=== PATIENT | female | born 1950 ===

== ENCOUNTER 2016-10-31 21:25 | Inpatient (IN) | payer OTHER, MEDICARE ==
--- NOTE | 2016-10-31 21:31 | C.PDOC ---
History Of Present Illness Patient brought to the ER via EMS after she having multiple episodes of vomiting , severe headache, and altered mental status. Patient had lunch today and complained of a headache; later at [address] to [facility] she began to have a severe headache, nausea, and change in mental status. Patient pulled the car over and vomited a large amount; she rested in the back of the car for a while, her family then proceeded to call 911 and bring her here. Time Seen by Provider: 10/31/16 21:30 Chief Complaint (Nursing): Headache History Per: EMS, Family History/Exam Limitations: no limitations Onset/Duration Of Symptoms: Hrs Current Symptoms Are (Timing): Still Present Severity: Moderate Pain Scale Rating Of: 5 Quality: Dull Preceeding Symptoms: Known Migraine Symptoms Associated Symptoms: Nausea, Vomiting, Extremity Weakness. denies: Blurred Vision Recent travel outside of the [place]: No Additional History Per: Family Past Medical History Reviewed: Historical Data, Nursing Documentation, Vital Signs Vital Signs: Last Vital Signs Temp 98.2 F 11/01/16 04:00 Pulse 75 11/01/16 05:00 Resp 10 L 11/01/16 05:00 BP 121/92 H 11/01/16 04:18 Pulse Ox 100 11/01/16 05:00 - Medical History PMH: No Chronic Diseases Surgical History: No Surg Hx Family History: States: No Known Family Hx Review Of Systems Constitutional: Negative for: Fever, Chills Eyes: Negative for: Vision Change Cardiovascular: Negative for: Chest Pain, Palpitations Respiratory: Negative for: Shortness of Breath, Wheezing Gastrointestinal: Positive for: Nausea, Vomiting. Negative for: Abdominal Pain Genitourinary: Negative for: Dysuria Musculoskeletal: Negative for: Neck Pain, Shoulder Pain, Arm Pain Skin: Negative for: Rash, Lesions Neurological: Positive for: Weakness, Altered Mental Status, Headache. Negative for: Dizziness Psych: Negative for: Anxiety Physical Exam - Physical Exam Appears: In Acute Distress, Other (AAAX#) Skin: Warm, Dry Head: Normacephalic Eye(s): bilateral: Normal Inspection, PERRL, EOMI, Other (sluggish response) Oral Mucosa: Moist Throat: No Erythema Neck: Trachea Midline, Supple Chest: Symmetrical, No Tenderness Cardiovascular: Rhythm Regular, No Murmur Respiratory: No Rales, No Rhonchi, No Wheezing Gastrointestinal/Abdominal: Soft, No Tenderness, No Distention Back: No CVA Tenderness Extremity: No Tenderness, No Pedal Edema, Other (left arm weakness) Extremity: Bilateral: Atraumatic, Normal Color And Temperature, Normal ROM Pulses: Left Dorsalis Pedis: Normal, Right Dorsalis Pedis: Normal Neurological/Psych: Oriented x3, Other (Mild right facial droop, and left arm weakness) Gait: Unable To Assess Extremity: Left: Falls Before 10 Secs ED Course And Treatment - Laboratory Results Result Diagrams: 10/31/16 21:56 10/31/16 21:56 ECG: Interpreted By Me, Viewed By Me ECG Rhythm: Sinus Rhythm (76), Nonspecific Changes O2 Sat by Pulse Oximetry: 98 Pulse Ox Interpretation: Normal - Radiology CXR: Interpreted by Me, Viewed By Me CXR Interpretation: No: Infiltrates, Fracture, Pnemothorax Progress Note: Code Stoke activated. Blood work, EKG, CXR ordered. 9:45 pm placed call to neurosurgery. 9:[address] bishop, neurosurgery, no surgery, repeat ct in am. 9:[address] lissy robles with [facility] and decprash[facility]. spoke with the family(hipaa compliant) about the diagnosis Critical Care Time - Critical Care Note Total Time (in mins): 30 Documented critical care: time excludes all time spent performing seperately billable procedures. NIHSS Stroke Scale - Date/Time Evaluation Performed Date Performed: 10/31/16 Time Performed: 21:28 When Was NIHSS Performed: Baseline - How Severe is the Stoke Level of Consciousness: 0=Alert LOC to Questions: 0=Both comments correct LOC to commands: 0=Obeys both correctly Best Gaze: 0=Normal Visual: 0=No visual loss Facial: 1=Minor asymmetry Motor Arm - Left: 2=Falls before 10 sec Motor Arm - Right: 0=No drift Motor Leg - Left: 0=No drift Motor Leg - Right: 0=No drift Limb Ataxia: 0=Absent Sensory: 0=Normal Best Language: 0=No aphasia Dysarthia: 1=Mild to moderate slurring Extinction & Inattention (Neglect): 0=Normal, no object Score: 4 Severity Of Stroke: 1-4= Minor Stroke rTPA Inclusion/Exclusion - Refusal of Treatment Patient Refused Treatment: No - Inclusion Criteria for Altepase Patient is 18 years or Older: Yes The Clinical Diagnosis of Ischemic Stroke That is Causing a Potentially Disabling Neurological Deficit: Yes Time of Onset is Well Established to be Less Than 270 Minute Before Treatment Would Begin: No Risk/Benefit Discussed With Patient/Family Member Present: Yes - Exclusion Criteria for Altepase Uncontrolled Hypertension at Time of Treatment (Systolic BP above 185 or Diastolic BP above 110 mmHg): No Active Internal Bleeding: No Known Bleeding Diathesis Including but Not Limited to: Platelets Below 100,000/ mm,PTT Above 40 sec After Heparin Use, Current Use of Oral Anitcoagulant With INR Greater Than 1.7 or PT Greater Than 15 secs: No Evidence of an Intracranial Hemorrhage: Yes Evidence of Major Acute Infarct With Signs Greater Than 1/3 MCA Territory: No Suspicion of Subarachnoid Hemorrhage on Pretreatment Evaluation Even if CT Head Negative For Hemorrhage: No Disposition Discussed With DrPaige: Clementina Nelson Comment: accepted the pt on his service and took over the care at 10:30PM Doctor Will See Patient In The: Hospital Counseled Patient/Family Regarding: Studies Performed, Diagnosis - Disposition Disposition: HOSPITALIZED Disposition Time: 21:31 Condition: CRITICAL - POA Present On Arrival: Poor Glycemic Control - Clinical Impression Clinical Impression: Headache, Intraparenchymal hemorrhage of brain - Scribe Statement The provider has reviewed the documentation as recorded by the Scribgee Alberts All medical record entries made by the Mikeibgee were at my direction and personally dictated by me. I have reviewed the chart and agree that the record accurately reflects my personal performance of the history, physical exam, medical decision making, and the department course for this patient. I have also personally directed, reviewed, and agree with the discharge instructions and disposition. Decision To Admit - Pt Status Changed To: Hospital Disposition Of: Inpatient - Admit Certification Admit to Inpatient:: After my assessment, the patient will require hospitalization for at least two midnights. This is because of the severity of symptoms shown, intensity of services needed, and/or the medical risk in this patient being treated as an outpatient. - InPatient: Physician Admission Certification: I certify that this patient requires 2 or more midnights of care for the following reason:: After my assessment, the patient will require hospitalization for at least two midnights. This is because of the severity of symptoms shown, intensity of services needed, and/or the medical risk in this patient being treated as an outpatient. - . Bed Request Type: ICU Admitting Physician: Clementina Nelson Patient Diagnosis: Headache, Intraparenchymal hemorrhage of brain
--- NOTE | 2016-10-31 21:54 | CT ---
EXAM: CT Head Without Intravenous Contrast CLINICAL HISTORY: 66 years old, female; Signs and symptoms; Altered mental status/memory loss; Confusion or disorientation; Additional info: Code stroke TECHNIQUE: Axial computed tomography images of the head/brain without intravenous contrast. This CT exam was performed using one or more of the following dose reduction techniques: automated exposure control, adjustment of the mA and/or kV according to patient size, and/or use of iterative reconstruction technique. COMPARISON: No relevant prior studies available. FINDINGS: Brain: 4.2 x 4.5 cm intraparenchymal hemorrhage within RIGHT temporal parietal region. Mild surrounding edema. Minimal RIGHT effacement of basilar cisterns. Grossly preserved day-white matter differentiation. Midline shift: 0.3 cm RIGHT to LEFT shift. Ventricles: No hydrocephalus. Bones/joints: No acute fracture. Soft tissues: Unremarkable. Vasculature: Mild atherosclerotic disease of intracranial arteries. Sinuses: No acute sinusitis. Mastoid air cells: Partial opacification of mastoids. Orbits: Unremarkable as visualized. IMPRESSION: 1. Intracranial hemorrhage as above. 2. Incidental/non-acute findings are described above.
[2016-10-31 22:01] LABS: BASO % 0.4 % (0.0-2.0); EOS % 0.4 % (0.0-4.0); HEMOGLOBIN 11.9 g/dL (11.0-16.0); LYMPH # 1.8 K/uL (1.0-4.3); LYMPH % 16.8 % (20.0-40.0); MEAN CELL VOLUME 89.5 fL (81.0-99.0); MEAN CORPUSCULAR HEMOGLOBIN 29.4 pg (27.0-31.0); MEAN CORPUSCULAR HGB CONC 32.8 g/dL (33.0-37.0); MEAN PLATELET VOLUME 8.8 fL (7.2-11.7); MONO # 0.7 K/uL (0.0-0.8); MONO % 6.6 % (0.0-10.0); NEUT # 7.9 K/uL (1.8-7.0); NEUT % 75.8 % (50.0-75.0); NRBC % 0.1 % (0.0-2.0); RBC 4.05 Mil/uL (3.80-5.20); RED CELL DISTRIBUTION WIDTH 13.2 % (11.5-14.5); WHITE BLOOD COUNT 10.5 K/uL (4.8-10.8)
[2016-10-31 22:09] LABS: PROTHROMBIN TIME 11.3 SECONDS (9.7-12.2)
[2016-10-31 22:10] LABS: ALBUMIN 4.2 g/dL (3.5-5.0)
[2016-10-31 22:13] LABS: ALB/GLOB RATIO 1.4 (1.0-2.1); AST/SGOT 23 U/L (14-36); BLOOD UREA NITROGEN 16 mg/dL (7-17); GFR AFRICAN-AMERICAN > 60; GFR NON-AFRICAN AMERICAN > 60
[2016-10-31] MEDS ORDERED: Dexamethasone 4 mg/1 ml IVP STA (22:13)
[2016-10-31 22:14] LABS: ALT/SGPT 22 U/L (9-52); CALCIUM 8.6 mg/dl (8.6-10.4); HDL CHOLESTEROL 61 mg/dL (30-70)
[2016-10-31] MEDS ORDERED: Dexamethasone 4 mg/1 ml ONE (22:23)
[2016-10-31 22:25] LABS: LDL CHOLESTEROL 101 mg/dL (0-129)
--- NOTE | 2016-10-31 23:56 | CP.PCM.CON ---
History of Present Illness - History of Present Illness History of Present Illness: 66 F with h/o HTN not on meds, was driving today around 6 pm with sister who noticed patient was disoriented and asked her to slab puller, patient then vomited and became lethargic. In ER she was brought and found right side intra cerebral bleed. Patient in ER had been lethargic as per the ER information left hang medical interpreter had been wk. Neuro surg was consulted advised no surgical intervention , neurology recommended prophylactic keppra and decadron. Patient at time of eval continued to c/o right side headache, was sleepy but arousable and would be able to answer questions and follow commands. Patient was not sob, denied, cp. PMH as above PSH none Allergies NKDA Family History not contributory Social denied alcohol, illicit drugs, tobacco, works as teacher Meds none Review of Systems - Review of Systems All systems: reviewed and no additional remarkable complaints except (HPI) Past Patient History - Past Social History Smoking Status: Unknown If Ever Smoked Alcohol: None Drugs: Denies Home Situation {Lives}: With Family Domestic Violence: Negative - CARDIAC Hx Hypertension: Yes - NEUROLOGICAL Hx Migraine: Yes - PSYCHIATRIC Hx Substance Use: No Meds Allergies/Adverse Reactions: Allergies Allergy/AdvReac Type Severity Reaction Status Date / Time No Known Allergies Allergy Verified 10/31/16 21:33 - Medications Medications: Current Medications Dexamethasone (Decadron Inj) 4 mg IV Q8 [facility] Stop: 11/01/16 22:01 Famotidine (Pepcid) 20 mg IVP Q12 PB Levetiracetam 500 mg/ Dextrose 105 mls @ 420 mls/hr IVPB Q12H [facility] Last Admin: 10/31/16 22:34 Dose: 420 mls/hr Levetiracetam (Keppra) 500 mg PO BID [facility] Physical Exam - Additional Findings Additional findings: * HEENT PHYLLIS * Neck Supple * Chest Clear * CVS regular, no gallop or rub * PA soft, nt, bs present * Ext no edema * [employer] left arm 2/5, left leg 2/5, sensations intact, coordination intact except weak area, facial weakness on the left lower face with movements. Pupils reactive, equal, tongue midline, speech and language intact. * Skin dry, normal turgor. Results - Vital Signs Recent Vital Signs: Last Vital Signs Temp Pulse 69 10/31/16 23:21 Resp 11 L 10/31/16 23:21 BP 149/65 10/31/16 23:21 Pulse Ox 100 10/31/16 23:21 - Labs Result Diagrams: 10/31/16 21:56 10/31/16 21:56 Assessment & Plan - Assessment and Plan (Free Text) Assessment: * Acute right side intracerbral bleed with resultant left arm/leg weakness * Borderline elevated BP Plan: * Monitor in ICU * Neurochecks * F/u head ct * Emperic keppra * Dexadron * GI/DVT prophylaxis * Neurology and neurosurg consult. * See orders for detail.
[2016-11-01] MEDS: Dexamethasone 4 mg/1 ml IV SCH ×3 (06:16→21:38)
[2016-11-01 06:28] LABS: BASO % 0.1 % (0.0-2.0); HEMOGLOBIN 11.7 g/dL (11.0-16.0); LYMPH # 0.7 K/uL (1.0-4.3); LYMPH % 8.9 % (20.0-40.0); MEAN CORPUSCULAR HEMOGLOBIN 29.3 pg (27.0-31.0); MEAN CORPUSCULAR HGB CONC 32.9 g/dL (33.0-37.0); MEAN PLATELET VOLUME 8.8 fL (7.2-11.7); MONO # 0.1 K/uL (0.0-0.8); MONO % 0.8 % (0.0-10.0); NEUT # 6.7 K/uL (1.8-7.0); NEUT % 90.2 % (50.0-75.0); PLATELET COUNT 258 K/uL (130-400); RED CELL DISTRIBUTION WIDTH 12.7 % (11.5-14.5); WHITE BLOOD COUNT 7.4 K/uL (4.8-10.8)
[2016-11-01 06:31] LABS: PROTHROMBIN TIME 11.3 SECONDS (9.7-12.2)
[2016-11-01 06:33] LABS: ALBUMIN 3.8 g/dL (3.5-5.0)
[2016-11-01 06:36] LABS: ALB/GLOB RATIO 1.2 (1.0-2.1); AST/SGOT 24 U/L (14-36); BLOOD UREA NITROGEN 15 mg/dL (7-17); GFR AFRICAN-AMERICAN > 60; GFR NON-AFRICAN AMERICAN > 60
[2016-11-01 06:37] LABS: ALT/SGPT 21 U/L (9-52); MAGNESIUM 1.9 mg/dL (1.6-2.3)
[2016-11-01 07:04] LABS: SQUAMOUS EPITHIAL < 1 /hpf (0-5); URINE AMORPHOUS SEDIMENT RARE /ul (<OCC); URINE BACTERIA RARE (<OCC); URINE BILIRUBIN NEGATIVE (NEGATIVE); URINE BLOOD NEGATIVE (NEGATIVE); URINE CLARITY Clear (Clear); URINE COLOR Yellow (YELLOW); URINE GLUCOSE (UA) NORMAL (Normal); URINE LEUKOCYTE ESTERASE TRACE Leu/uL (Negative); URINE NITRATE NEGATIVE (NEGATIVE); URINE PROTEIN 2+ mg/dL (NEGATIVE); URINE UROBILINOGEN NORMAL mg/dL (0.2-1.0)
--- NOTE | 2016-11-01 07:04 | RAD ---
HISTORY: headache COMPARISON: No prior. FINDINGS: LUNGS: Biapical pleural thickening with upper lobe granulomatous changes. Mild venous congestion. Right hilar prominence. PLEURA: No significant pleural effusion identified, no pneumothorax apparent. CARDIOVASCULAR: Normal. OSSEOUS STRUCTURES: No significant abnormalities. VISUALIZED UPPER ABDOMEN: Normal. OTHER FINDINGS: None. IMPRESSION: Biapical pleural thickening with upper lobe granulomatous changes. Mild venous congestion. Right hilar prominence.
[2016-11-01] MEDS ORDERED: Phytonadione 10 mg/ml Inj (Adult) IV STA (07:06)
[2016-11-01] MEDS ORDERED: Phytonadione 10 MG in Sodium Chloride 0.9% 50 ML IVPB ONE (07:30)
[2016-11-01 08:20] LABS: BANDS 1 % (0-2); LYMPHOCYTE 7 % (20-40); MONOCYTE 2 % (0-10); NEUTROPHIL 90 % (50-75); PLATELET ESTIMATE NORMAL (NORMAL); TOTAL CELLS COUNTED 100
[2016-11-01 09:28] LABS: FOLATE 13.7 ng/mL
--- NOTE | 2016-11-01 09:34 | CT ---
PROCEDURE: CT HEAD WITHOUT CONTRAST. HISTORY: f/u intracerebral bleed COMPARISON: None available. TECHNIQUE: Axial computed tomography images were obtained through the head/brain without intravenous contrast. Radiation dose: Total exam DLP = 1175.84 mGy-cm. This CT exam was performed using one or more of the following dose reduction techniques: Automated exposure control, adjustment of the mA and/or kV according to patient size, and/or use of iterative reconstruction technique. FINDINGS: HEMORRHAGE: Re- demonstrated is a large right-sided hematoma the epicenter of which appears to be located in the right temporal lobe extending superiorly into the right lateral and posterior basal ganglia. The hematoma (which measures approximately 5.2 AP x 3.2 trans) is surrounded by a thin rim of low-attenuation edema . . The hematoma and its attendant surrounding edema exert surrounding mass effect with compression of the overlying sulci as well as the right sylvian fissure and compression of the right lateral ventricle. The right temporal horn is medially displaced. There is approximately 5.5 mm of midline shift from right to left. BRAIN: Suspect minimal chronic periventricular white matter ischemic changes. . . . Mild generalized volume loss, not withstanding the aforementioned mass effect. VENTRICLES: Moderate compression right lateral ventricle particularly right temporal horn as above. No evidence of hydrocephalus. CALVARIUM: Unremarkable. PARANASAL SINUSES: Unremarkable as visualized. No significant inflammatory changes. MASTOID AIR CELLS: Unremarkable as visualized. No inflammatory changes. OTHER FINDINGS: None. IMPRESSION: Re- demonstrated is a large elliptical shaped hematoma, the epicenter of which is located in the right temporal lobe extending superiorly into the right posterolateral basal ganglia with surrounding mass-effect and mild midline shift.
--- NOTE | 2016-11-01 10:27 | CP.PCM.PN ---
Subjective - Date & Time of Evaluation Date of Evaluation: 11/01/16 Time of Evaluation: 10:26 - Subjective Subjective: full consult dicatted no change in CT unlikely will need decomprression ordered Mannitl for 48 hrs ordered melanie if any change in MS call stat please Objective - Vital Signs/Intake and Output Vital Signs (last 24 hours): Temp Pulse Resp BP Pulse Ox 97.7 F 79 10 L 135/73 100 11/01/16 08:00 11/01/16 09:00 11/01/16 09:00 11/01/16 08:32 11/01/16 09:00 Intake and Output: 11/01/16 11/01/16 06:59 18:59 Intake Total 100 100 Output Total 300 200 Balance -200 -100 - Medications Medications: Current Medications Dexamethasone (Decadron Inj) 4 mg IV Q8 PB Stop: 11/01/16 22:01 Last Admin: 11/01/16 06:16 Dose: 4 mg Famotidine (Pepcid) 20 mg IVP Q12 PB Last Admin: 11/01/16 09:44 Dose: 20 mg Levetiracetam 500 mg/ Dextrose 105 mls @ 420 mls/hr IVPB Q12H PB Last Admin: 11/01/16 09:44 Dose: 420 mls/hr Mannitol (Mannitol) 12.5 gm IV Q8H PB Stop: 11/03/16 02:31 - Labs Labs: 11/01/16 06:15 11/01/16 06:15 PT 11.3 SECONDS (9.7-12.2) 11/01/16 06:15 INR 1.0 11/01/16 06:15 APTT 27 SECONDS (21-34) 11/01/16 06:15
[2016-11-01] MEDS: Mannitol 12.5 gm/50 ml Inj IV SCH ×2 (10:43→18:26)
--- NOTE | 2016-11-01 14:53 | CP.CCUPN ---
CCU Subjective - Physician Review Events Since Last Encounter (Free Text): 11/01/16 14:50 Patient seen and examined in the intensive care unit. Case discussed with house staff in the morning rounds. 66-year-old female admitted with right intracerebral bleed with left-sided weakness Patient awake /responsive, able to speak in full sentences and moving all extremities Seen by neurosurgery and no plan for any intervention CCU Objective - Vital Signs / Intake & Output Vital Signs (Last 4 hours): Vital Signs Pulse Resp BP Pulse Ox 11/01/16 14:18 86 17 103/68 100 11/01/16 14:00 85 11 L 100 11/01/16 13:18 79 9 L 108/55 L 100 11/01/16 13:00 79 9 L 100 11/01/16 12:18 81 9 L 126/61 100 11/01/16 12:00 78 9 L 100 11/01/16 11:18 78 8 L 114/59 L 100 11/01/16 11:00 81 8 L 100 Intake and Output (Last 8hrs): Intake & Output 10/31/16 11/01/16 11/01/16 22:59 06:59 14:59 Intake Total 100 0 250 Output Total 300 0 300 Balance -200 0 -50 Weight 134 lb 11.239 oz 134 lb 11 oz Intake: IV 100 Intake, IV Amount 250 Right Forearm 250 Oral 0 0 Output: Urine 300 300 Urine, Voided 300 Stool 0 0 Other: Voiding Method Bedpan # Voids Urine, Voided 0 0 # Bowel Movements 0 0 - Physical Exam Head: Positive for: Atraumatic, Normocephalic Extroacular Muscles: Positive for: EOMI Mouth: Positive for: Moist Mucous Membranes Neck: Positive for: Normal Range of Motion Respiratory/Chest: Positive for: Clear to Auscultation Cardiovascular: Positive for: Regular Rate and Rhythm Abdomen: Positive for: Normal Bowel Sounds Upper Extremity: Positive for: Normal Inspection Lower Extremity: Positive for: Normal Inspection Psychiatric: Positive for: Alert - Medications Active Medications: Active Medications Generic Name Dose Route Start Last Admin Trade Name Freq PRN Reason Stop Dose Admin Dexamethasone 4 mg 11/01/16 06:00 11/01/16 13:44 Decadron Inj IV 11/01/16 22:01 4 mg Q8 PB Administration Famotidine 20 mg 10/31/16 23:45 11/01/16 09:44 Pepcid IVP 20 mg Q12 PB Administration Levetiracetam 500 mg/ Dextrose 105 mls @ 420 mls/hr 10/31/16 22:15 11/01/16 09:44 IVPB 420 mls/hr Q12H PB Administration Mannitol 12.5 gm 11/01/16 10:30 11/01/16 10:43 Mannitol IV 11/03/16 02:31 12.5 gm Q8H PB Administration - Patient Studies Lab Studies: Lab Studies 11/01/16 11/01/16 11/01/16 Range/Units 11:40 09:07 08:00 WBC (4.8-10.8) K/uL RBC (3.80-5.20) Mil/uL Hgb (11.0-16.0) g/dL Hct (34.0-47.0) % MCV (81.0-99.0) fL MCH (27.0-31.0) pg MCHC (33.0-37.0) g/dL RDW (11.5-14.5) % Plt Count (130-400) K/uL MPV (7.2-11.7) fL Neut % (Auto) (50.0-75.0) % Lymph % (Auto) (20.0-40.0) % [place] % (Auto) (0.0-10.0) % Eos % (Auto) (0.0-4.0) % Baso % (Auto) (0.0-2.0) % Neut # (1.8-7.0) K/uL Lymph # (1.0-4.3) K/uL [place] # (0.0-0.8) K/uL Eos # (0.0-0.7) K/uL Baso # (0.0-0.2) K/uL Neutrophils % (Manual) (50-75) % Band Neutrophils % (0-2) % Lymphocytes % (Manual) (20-40) % Monocytes % (Manual) (0-10) % Platelet Estimate (NORMAL) RBC Morphology PT (9.7-12.2) SECONDS INR APTT (21-34) SECONDS Fibrinogen 320 (200-400) mg/dL Sodium (132-148) mmol/L Potassium (3.6-5.2) mmol/L Chloride (98-107) mmol/L Carbon Dioxide (22-30) mmol/L Anion Gap (10-20) BUN (7-17) mg/dL Creatinine (0.7-1.2) MG/DL Est GFR ( Amer) Est GFR (Non-Af Amer) POC Glucose (mg/dL) 135 H 129 H (65-110) mg/dL Random Glucose (65-105) mg/dL Calcium (8.6-10.4) mg/dl Magnesium (1.6-2.3) mg/dL Total Bilirubin (0.2-1.3) mg/dL AST (14-36) U/L ALT (9-52) U/L Alkaline Phosphatase (38-126) U/L Troponin I (0.00-0.120) ng/mL Total Protein (6.3-8.3) g/dL Albumin (3.5-5.0) g/dL Globulin (2.2-3.9) gm/dL Albumin/Globulin Ratio (1.0-2.1) Vitamin B12 (239-931) pg/mL Folate ng/mL Homocysteine (4.7-12.6) umol/L Urine Color (YELLOW) Urine Clarity (Clear) Urine pH (5.0-8.0) Ur Specific [place] (1.003-1.030) Urine Protein (NEGATIVE) mg/dL Urine Glucose (UA) (Normal) mg/dL Urine Ketones (NEGATIVE) mg/dL Urine Blood (NEGATIVE) Urine Nitrate (NEGATIVE) Urine Bilirubin (NEGATIVE) Urine Urobilinogen (0.2-1.0) mg/dL Ur Leukocyte Esterase (Negative) Jayshree/uL Urine WBC (Auto) (0-5) /hpf Urine RBC (Auto) (0-3) /hpf Ur Squamous Epith Cells (0-5) /hpf Amorphous Sediment (<OCC) /ul Urine Bacteria (<OCC) 11/01/16 11/01/16 11/01/16 Range/Units 08:00 06:15 06:15 WBC (4.8-10.8) K/uL RBC (3.80-5.20) Mil/uL Hgb (11.0-16.0) g/dL Hct (34.0-47.0) % MCV (81.0-99.0) fL MCH (27.0-31.0) pg MCHC (33.0-37.0) g/dL RDW (11.5-14.5) % Plt Count (130-400) K/uL MPV (7.2-11.7) fL Neut % (Auto) (50.0-75.0) % Lymph % (Auto) (20.0-40.0) % [place] % (Auto) (0.0-10.0) % Eos % (Auto) (0.0-4.0) % Baso % (Auto) (0.0-2.0) % Neut # (1.8-7.0) K/uL Lymph # (1.0-4.3) K/uL [place] # (0.0-0.8) K/uL Eos # (0.0-0.7) K/uL Baso # (0.0-0.2) K/uL Neutrophils % (Manual) (50-75) % Band Neutrophils % (0-2) % Lymphocytes % (Manual) (20-40) % Monocytes % (Manual) (0-10) % Platelet Estimate (NORMAL) RBC Morphology PT (9.7-12.2) SECONDS INR APTT (21-34) SECONDS Fibrinogen (200-400) mg/dL Sodium 139 (132-148) mmol/L Potassium 3.8 (3.6-5.2) mmol/L Chloride 103 (98-107) mmol/L Carbon Dioxide 26 (22-30) mmol/L Anion Gap 14 (10-20) BUN 15 (7-17) mg/dL Creatinine 0.6 L (0.7-1.2) MG/DL Est GFR ( Amer) > 60 Est GFR (Non-Af Amer) > 60 POC Glucose (mg/dL) (65-110) mg/dL Random Glucose 155 H (65-105) mg/dL Calcium 9.0 (8.6-10.4) mg/dl Magnesium 1.9 (1.6-2.3) mg/dL Total Bilirubin 1.0 (0.2-1.3) mg/dL AST 24 (14-36) U/L ALT 21 (9-52) U/L Alkaline Phosphatase 126 (38-126) U/L Troponin I 0.0140 (0.00-0.120) ng/mL Total Protein 7.1 (6.3-8.3) g/dL Albumin 3.8 (3.5-5.0) g/dL Globulin 3.3 (2.2-3.9) gm/dL Albumin/Globulin Ratio 1.2 (1.0-2.1) Vitamin B12 473 (239-931) pg/mL Folate 13.7 ng/mL Homocysteine 5.9 (4.7-12.6) umol/L Urine Color Yellow (YELLOW) Urine Clarity Clear (Clear) Urine pH 5.0 (5.0-8.0) Ur Specific [place] 1.016 (1.003-1.030) Urine Protein 2+ H (NEGATIVE) mg/dL Urine Glucose (UA) Normal (Normal) mg/dL Urine Ketones Negative (NEGATIVE) mg/dL Urine Blood Negative (NEGATIVE) Urine Nitrate Negative (NEGATIVE) Urine Bilirubin Negative (NEGATIVE) Urine Urobilinogen Normal (0.2-1.0) mg/dL Ur Leukocyte Esterase Trace (Negative) Jayshree/uL Urine WBC (Auto) 6 H (0-5) /hpf Urine RBC (Auto) 5 H (0-3) /hpf Ur Squamous Epith Cells < 1 (0-5) /hpf Amorphous Sediment Rare H (<OCC) /ul Urine Bacteria Rare (<OCC) 11/01/16 11/01/16 Range/Units 06:15 06:15 WBC 7.4 (4.8-10.8) K/uL RBC 4.00 (3.80-5.20) Mil/uL Hgb 11.7 (11.0-16.0) g/dL Hct 35.6 (34.0-47.0) % MCV 89.0 (81.0-99.0) fL MCH 29.3 (27.0-31.0) pg MCHC 32.9 L (33.0-37.0) g/dL RDW 12.7 (11.5-14.5) % Plt Count 258 (130-400) K/uL MPV 8.8 (7.2-11.7) fL Neut % (Auto) 90.2 H (50.0-75.0) % Lymph % (Auto) 8.9 L (20.0-40.0) % [place] % (Auto) 0.8 (0.0-10.0) % Eos % (Auto) 0.0 (0.0-4.0) % Baso % (Auto) 0.1 (0.0-2.0) % Neut # 6.7 (1.8-7.0) K/uL Lymph # 0.7 L (1.0-4.3) K/uL [place] # 0.1 (0.0-0.8) K/uL Eos # 0.0 (0.0-0.7) K/uL Baso # 0.0 (0.0-0.2) K/uL Neutrophils % (Manual) 90 H (50-75) % Band Neutrophils % 1 (0-2) % Lymphocytes % (Manual) 7 L (20-40) % Monocytes % (Manual) 2 (0-10) % Platelet Estimate Normal (NORMAL) RBC Morphology Normal PT 11.3 (9.7-12.2) SECONDS INR 1.0 APTT 27 (21-34) SECONDS Fibrinogen (200-400) mg/dL Sodium (132-148) mmol/L Potassium (3.6-5.2) mmol/L Chloride (98-107) mmol/L Carbon Dioxide (22-30) mmol/L Anion Gap (10-20) BUN (7-17) mg/dL Creatinine (0.7-1.2) MG/DL Est GFR ( Amer) Est GFR (Non-Af Amer) POC Glucose (mg/dL) (65-110) mg/dL Random Glucose (65-105) mg/dL Calcium (8.6-10.4) mg/dl Magnesium (1.6-2.3) mg/dL Total Bilirubin (0.2-1.3) mg/dL AST (14-36) U/L ALT (9-52) U/L Alkaline Phosphatase (38-126) U/L Troponin I (0.00-0.120) ng/mL Total Protein (6.3-8.3) g/dL Albumin (3.5-5.0) g/dL Globulin (2.2-3.9) gm/dL Albumin/Globulin Ratio (1.0-2.1) Vitamin B12 (239-931) pg/mL Folate ng/mL Homocysteine (4.7-12.6) umol/L Urine Color (YELLOW) Urine Clarity (Clear) Urine pH (5.0-8.0) Ur Specific [place] (1.003-1.030) Urine Protein (NEGATIVE) mg/dL Urine Glucose (UA) (Normal) mg/dL Urine Ketones (NEGATIVE) mg/dL Urine Blood (NEGATIVE) Urine Nitrate (NEGATIVE) Urine Bilirubin (NEGATIVE) Urine Urobilinogen (0.2-1.0) mg/dL Ur Leukocyte Esterase (Negative) Jayshree/uL Urine WBC (Auto) (0-5) /hpf Urine RBC (Auto) (0-3) /hpf Ur Squamous Epith Cells (0-5) /hpf Amorphous Sediment (<OCC) /ul Urine Bacteria (<OCC) Laboratory Results - last 24 hr 11/01/16 11/01/16 11/01/16 06:15 06:15 06:15 WBC 7.4 RBC 4.00 Hgb 11.7 Hct 35.6 MCV 89.0 MCH 29.3 MCHC 32.9 L RDW 12.7 Plt Count 258 MPV 8.8 Neut % (Auto) 90.2 H Lymph % (Auto) 8.9 L [place] % (Auto) 0.8 Eos % (Auto) 0.0 Baso % (Auto) 0.1 Neut # 6.7 Lymph # 0.7 L [place] # 0.1 Eos # 0.0 Baso # 0.0 Neutrophils % (Manual) 90 H Band Neutrophils % 1 Lymphocytes % (Manual) 7 L Monocytes % (Manual) 2 Platelet Estimate Normal RBC Morphology Normal PT 11.3 INR 1.0 APTT 27 Fibrinogen Sodium 139 Potassium 3.8 Chloride 103 Carbon Dioxide 26 Anion Gap 14 BUN 15 Creatinine 0.6 L Est GFR ( Amer) > 60 Est GFR (Non-Af Amer) > 60 POC Glucose (mg/dL) Random Glucose 155 H Calcium 9.0 Magnesium 1.9 Total Bilirubin 1.0 AST 24 ALT 21 Alkaline Phosphatase 126 Troponin I 0.0140 Total Protein 7.1 Albumin 3.8 Globulin 3.3 Albumin/Globulin Ratio 1.2 Vitamin B12 Folate Homocysteine Urine Color Urine Clarity Urine pH Ur Specific [place] Urine Protein Urine Glucose (UA) Urine Ketones Urine Blood Urine Nitrate Urine Bilirubin Urine Urobilinogen Ur Leukocyte Esterase Urine WBC (Auto) Urine RBC (Auto) Ur Squamous Epith Cells Amorphous Sediment Urine Bacteria 11/01/16 11/01/16 11/01/16 06:15 08:00 08:00 WBC RBC Hgb Hct MCV MCH MCHC RDW Plt Count MPV Neut % (Auto) Lymph % (Auto) [place] % (Auto) Eos % (Auto) Baso % (Auto) Neut # Lymph # [place] # Eos # Baso # Neutrophils % (Manual) Band Neutrophils % Lymphocytes % (Manual) Monocytes % (Manual) Platelet Estimate RBC Morphology PT INR APTT Fibrinogen 320 Sodium Potassium Chloride Carbon Dioxide Anion Gap BUN Creatinine Est GFR ( Amer) Est GFR (Non-Af Amer) POC Glucose (mg/dL) Random Glucose Calcium Magnesium Total Bilirubin AST ALT Alkaline Phosphatase Troponin I Total Protein Albumin Globulin Albumin/Globulin Ratio Vitamin B12 473 Folate 13.7 Homocysteine 5.9 Urine Color Yellow Urine Clarity Clear Urine pH 5.0 Ur Specific [place] 1.016 Urine Protein 2+ H Urine Glucose (UA) Normal Urine Ketones Negative Urine Blood Negative Urine Nitrate Negative Urine Bilirubin Negative Urine Urobilinogen Normal Ur Leukocyte Esterase Trace Urine WBC (Auto) 6 H Urine RBC (Auto) 5 H Ur Squamous Epith Cells < 1 Amorphous Sediment Rare H Urine Bacteria Rare 11/01/16 11/01/16 09:07 11:40 WBC RBC Hgb Hct MCV MCH MCHC RDW Plt Count MPV Neut % (Auto) Lymph % (Auto) [place] % (Auto) Eos % (Auto) Baso % (Auto) Neut # Lymph # [place] # Eos # Baso # Neutrophils % (Manual) Band Neutrophils % Lymphocytes % (Manual) Monocytes % (Manual) Platelet Estimate RBC Morphology PT INR APTT Fibrinogen Sodium Potassium Chloride Carbon Dioxide Anion Gap BUN Creatinine Est GFR ( Amer) Est GFR (Non-Af Amer) POC Glucose (mg/dL) 129 H 135 H Random Glucose Calcium Magnesium Total Bilirubin AST ALT Alkaline Phosphatase Troponin I Total Protein Albumin Globulin Albumin/Globulin Ratio Vitamin B12 Folate Homocysteine Urine Color Urine Clarity Urine pH Ur Specific [place] Urine Protein Urine Glucose (UA) Urine Ketones Urine Blood Urine Nitrate Urine Bilirubin Urine Urobilinogen Ur Leukocyte Esterase Urine WBC (Auto) Urine RBC (Auto) Ur Squamous Epith Cells Amorphous Sediment Urine Bacteria Fingerstick Blood Sugar Results: 135 Assessment/Plan (1) Intraparenchymal hemorrhage of brain Current Visit: Yes Status: Acute Comment: Repeat CAT scan of the head showed no change Started on mannitol Patient is responsive and moving all extremities Continue neuo checks Seen by neurology and the plan is for MRI
--- NOTE | 2016-11-01 15:01 | CP.PCM.CON ---
History of Present Illness - History of Present Illness History of Present Illness: NEW AND DIFFERENT HEADACHE WHILE DRIVING AND DRIVING ON THE SIDE WALK AND SHE WAS FORCED TO [employer] HER CAR. THIS LEAD TO VOMITING AND BROUGHT TO CAT DONE SHOWED ICH SHE WAS INITIALLY DISORIENTED WITH LEFT SIDE WEAKNESS AT PRESENT RIGHT TEMPORAL HEADACHE AND SHE HERSELF MASSAGING . DENIES ANY WEAKNESS AND SENSORY DEFICIT Past Patient History - Past Medical History & Family History Past Medical History?: Yes - Past Social History Smoking Status: Unknown If Ever Smoked Alcohol: None Drugs: Denies Home Situation {Lives}: With Family Domestic Violence: Negative - CARDIAC Hx Hypercholesterolemia: Yes Hx Hypertension: Yes - PULMONARY Hx Respiratory Disorders: No - NEUROLOGICAL Hx Migraine: Yes (TAKES EXTRA STRENGTH EXEDRINE) - MUSCULOSKELETAL/RHEUMATOLOGICAL Hx Back Pain: Yes Hx Falls: No - PSYCHIATRIC Hx Substance Use: No - ANESTHESIA Hx Anesthesia: No Hx Anesthesia Reactions: No Hx Malignant Hyperthermia: No Has any member of the family had a problem w/ anesthesia?: No Meds Allergies/Adverse Reactions: Allergies Allergy/AdvReac Type Severity Reaction Status Date / Time No Known Allergies Allergy Verified 10/31/16 21:33 - Medications Medications: Current Medications Acetaminophen (Tylenol 325mg Tab) 650 mg PO Q4H PRN PRN Reason: Headache Dexamethasone (Decadron Inj) 4 mg IV Q8 [facility] Stop: 11/01/16 22:01 Last Admin: 11/01/16 13:44 Dose: 4 mg Famotidine (Pepcid) 20 mg IVP Q12 [facility] Last Admin: 11/01/16 09:44 Dose: 20 mg Levetiracetam 500 mg/ Dextrose 105 mls @ 420 mls/hr IVPB Q12H [facility] Last Admin: 11/01/16 09:44 Dose: 420 mls/hr Mannitol (Mannitol) 12.5 gm IV Q8H [facility] Stop: 11/03/16 02:31 Last Admin: 11/01/16 10:43 Dose: 12.5 gm Physical Exam - Constitutional Appears: In Acute Distress - Head Exam Head Exam: ATRAUMATIC - Eye Exam Eye Exam: EOMI, Normal appearance, PERRL Pupil Exam: PERRL Additional comments: LEFT HOMONYMOUS HEMIANOPSIA - ENT Exam ENT Exam: Normal Exam - Neck Exam Neck exam: Positive for: Full Rom Additional comments: NO BRUIT - Respiratory Exam Respiratory Exam: Clear to Auscultation Bilateral - Cardiovascular Exam Cardiovascular Exam: REGULAR RHYTHM - Expanded Neurological Exam Expanded Patient oriented to: person, place, time Cranial nerves: EOM's Intact: Normal, Facial Palsey w/o Forehead Movement: Abnormal Left, Facial Sensation: Abnormal Left, Gag Reflex: Normal, Nystagmus: Normal, Tongue Deviation: Normal Cerebellar Function: Finger to Nose: Abnormal Left Upper motor neuron: Babinski Sign: Abnormal Left, Stephane Neglect: Abnormal Left, Pronator Drift: Abnormal Left, Sensory Extinction: Abnormal Left (STEPHANE SENSORY DEFICIT) Neuro motor strength exam: Left Upper Extremity: 4 (4+), Right Upper Extremity: 5, Left Lower Extremity: 4 (4-), Right Lower Extremity: 5 DTR: Achilles Tendon Left: 1+, Achilles Tendon Right: 2+, Bicep Left: 1+, Bicep Right: 1+, Brachioradialis Left: 1+, Brachioradialis Right: 1+, Patellar Left: 0 , Patellar Right: 0, Tricep Left: 1+, Tricep Right: 1+ Results - Vital Signs Recent Vital Signs: Last Vital Signs Temp 97.7 F 11/01/16 08:00 Pulse 86 11/01/16 14:18 Resp 17 11/01/16 14:18 BP 103/68 11/01/16 14:18 Pulse Ox 100 11/01/16 14:18 - Labs Result Diagrams: 11/01/16 06:15 11/01/16 06:15 Labs: Laboratory Results - last 24 hr 11/01/16 11/01/16 11/01/16 06:15 06:15 06:15 WBC 7.4 RBC 4.00 Hgb 11.7 Hct 35.6 MCV 89.0 MCH 29.3 MCHC 32.9 L RDW 12.7 Plt Count 258 MPV 8.8 Neut % (Auto) 90.2 H Lymph % (Auto) 8.9 L [place] % (Auto) 0.8 Eos % (Auto) 0.0 Baso % (Auto) 0.1 Neut # 6.7 Lymph # 0.7 L [place] # 0.1 Eos # 0.0 Baso # 0.0 Neutrophils % (Manual) 90 H Band Neutrophils % 1 Lymphocytes % (Manual) 7 L Monocytes % (Manual) 2 Platelet Estimate Normal RBC Morphology Normal PT 11.3 INR 1.0 APTT 27 Fibrinogen Sodium 139 Potassium 3.8 Chloride 103 Carbon Dioxide 26 Anion Gap 14 BUN 15 Creatinine 0.6 L Est GFR ( Amer) > 60 Est GFR (Non-Af Amer) > 60 POC Glucose (mg/dL) Random Glucose 155 H Calcium 9.0 Magnesium 1.9 Total Bilirubin 1.0 AST 24 ALT 21 Alkaline Phosphatase 126 Troponin I 0.0140 Total Protein 7.1 Albumin 3.8 Globulin 3.3 Albumin/Globulin Ratio 1.2 Vitamin B12 Folate Homocysteine Urine Color Urine Clarity Urine pH Ur Specific [place] Urine Protein Urine Glucose (UA) Urine Ketones Urine Blood Urine Nitrate Urine Bilirubin Urine Urobilinogen Ur Leukocyte Esterase Urine WBC (Auto) Urine RBC (Auto) Ur Squamous Epith Cells Amorphous Sediment Urine Bacteria 11/01/16 11/01/16 11/01/16 06:15 08:00 08:00 WBC RBC Hgb Hct MCV MCH MCHC RDW Plt Count MPV Neut % (Auto) Lymph % (Auto) [place] % (Auto) Eos % (Auto) Baso % (Auto) Neut # Lymph # [place] # Eos # Baso # Neutrophils % (Manual) Band Neutrophils % Lymphocytes % (Manual) Monocytes % (Manual) Platelet Estimate RBC Morphology PT INR APTT Fibrinogen 320 Sodium Potassium Chloride Carbon Dioxide Anion Gap BUN Creatinine Est GFR ( Amer) Est GFR (Non-Af Amer) POC Glucose (mg/dL) Random Glucose Calcium Magnesium Total Bilirubin AST ALT Alkaline Phosphatase Troponin I Total Protein Albumin Globulin Albumin/Globulin Ratio Vitamin B12 473 Folate 13.7 Homocysteine 5.9 Urine Color Yellow Urine Clarity Clear Urine pH 5.0 Ur Specific [place] 1.016 Urine Protein 2+ H Urine Glucose (UA) Normal Urine Ketones Negative Urine Blood Negative Urine Nitrate Negative Urine Bilirubin Negative Urine Urobilinogen Normal Ur Leukocyte Esterase Trace Urine WBC (Auto) 6 H Urine RBC (Auto) 5 H Ur Squamous Epith Cells < 1 Amorphous Sediment Rare H Urine Bacteria Rare 11/01/16 11/01/16 09:07 11:40 WBC RBC Hgb Hct MCV MCH MCHC RDW Plt Count MPV Neut % (Auto) Lymph % (Auto) [place] % (Auto) Eos % (Auto) Baso % (Auto) Neut # Lymph # [place] # Eos # Baso # Neutrophils % (Manual) Band Neutrophils % Lymphocytes % (Manual) Monocytes % (Manual) Platelet Estimate RBC Morphology PT INR APTT Fibrinogen Sodium Potassium Chloride Carbon Dioxide Anion Gap BUN Creatinine Est GFR ( Amer) Est GFR (Non-Af Amer) POC Glucose (mg/dL) 129 H 135 H Random Glucose Calcium Magnesium Total Bilirubin AST ALT Alkaline Phosphatase Troponin I Total Protein Albumin Globulin Albumin/Globulin Ratio Vitamin B12 Folate Homocysteine Urine Color Urine Clarity Urine pH Ur Specific [place] Urine Protein Urine Glucose (UA) Urine Ketones Urine Blood Urine Nitrate Urine Bilirubin Urine Urobilinogen Ur Leukocyte Esterase Urine WBC (Auto) Urine RBC (Auto) Ur Squamous Epith Cells Amorphous Sediment Urine Bacteria - Imaging and Cardiology CT scan - head Additional comment: RIGHT TEMPORAL PARIETAL INTRPARANCHYMAL BLEED WITH SHIFT OF 5MM AND SULCAL AND LATERAL VENTRICLE EFFACEMENT Assessment & Plan (1) Intraparenchymal hemorrhage of brain Assessment and Plan: KEEP MAP 100 HEAD END ELEVATION TIFFANIE SANDOVAL Sz PROPHYLAXIS MRI TO R/O VASCULAR PATH OR MASS CAROTID/ECHO/EEG DRIVING RESTRICTION BEEN DISCUSSED ON HER LEFT HOMONYMOUS HEMIANOPSIA WHEN SHE IS DISCHARGED Status: Acute - Date & Time Date: 11/01/16 Time: 15:05
--- NOTE | 2016-11-01 21:07 | CP.PCM.HP ---
Past Patient History - Past Medical History & Family History Past Medical History?: Yes - Past Social History Smoking Status: Unknown If Ever Smoked Alcohol: None Drugs: Denies Home Situation {Lives}: With Family Domestic Violence: Negative - CARDIAC Hx Hypercholesterolemia: Yes Hx Hypertension: Yes - PULMONARY Hx Respiratory Disorders: No - NEUROLOGICAL Hx Migraine: Yes (TAKES EXTRA STRENGTH EXEDRINE) - MUSCULOSKELETAL/RHEUMATOLOGICAL Hx Back Pain: Yes Hx Falls: No - PSYCHIATRIC Hx Substance Use: No - ANESTHESIA Hx Anesthesia: No Hx Anesthesia Reactions: No Hx Malignant Hyperthermia: No Has any member of the family had a problem w/ anesthesia?: No Meds Allergies/Adverse Reactions: Allergies Allergy/AdvReac Type Severity Reaction Status Date / Time No Known Allergies Allergy Verified 10/31/16 21:33 Physical Exam - Constitutional Appears: Well - Head Exam Head Exam: ATRAUMATIC, NORMAL INSPECTION, NORMOCEPHALIC - Eye Exam Eye Exam: EOMI, Normal appearance, PERRL Pupil Exam: NORMAL ACCOMODATION, PERRL - ENT Exam ENT Exam: Mucous Membranes Moist, Normal Exam - Neck Exam Neck exam: Positive for: Normal Inspection - Respiratory Exam Respiratory Exam: Decreased Breath Sounds - Cardiovascular Exam Cardiovascular Exam: REGULAR RHYTHM, +S1, +S2 - GI/Abdominal Exam GI & Abdominal Exam: Diminished Bowel Sounds, Soft - Rectal Exam Rectal Exam: Deferred Results - Vital Signs Recent Vital Signs: Last Vital Signs Temp 98.8 F 11/01/16 20:00 Pulse 81 11/01/16 20:18 Resp 11 L 11/01/16 20:18 BP 100/47 L 11/01/16 20:18 Pulse Ox 100 11/01/16 20:18 - Labs Result Diagrams: 11/01/16 06:15 11/01/16 06:15 Labs: Laboratory Results - last 24 hr 11/01/16 11/01/16 11/01/16 06:15 06:15 06:15 WBC 7.4 RBC 4.00 Hgb 11.7 Hct 35.6 MCV 89.0 MCH 29.3 MCHC 32.9 L RDW 12.7 Plt Count 258 MPV 8.8 Neut % (Auto) 90.2 H Lymph % (Auto) 8.9 L [place] % (Auto) 0.8 Eos % (Auto) 0.0 Baso % (Auto) 0.1 Neut # 6.7 Lymph # 0.7 L [place] # 0.1 Eos # 0.0 Baso # 0.0 Neutrophils % (Manual) 90 H Band Neutrophils % 1 Lymphocytes % (Manual) 7 L Monocytes % (Manual) 2 Platelet Estimate Normal RBC Morphology Normal PT 11.3 INR 1.0 APTT 27 Fibrinogen Sodium 139 Potassium 3.8 Chloride 103 Carbon Dioxide 26 Anion Gap 14 BUN 15 Creatinine 0.6 L Est GFR ( Amer) > 60 Est GFR (Non-Af Amer) > 60 POC Glucose (mg/dL) Random Glucose 155 H Calcium 9.0 Magnesium 1.9 Total Bilirubin 1.0 AST 24 ALT 21 Alkaline Phosphatase 126 Troponin I 0.0140 Total Protein 7.1 Albumin 3.8 Globulin 3.3 Albumin/Globulin Ratio 1.2 Vitamin B12 Folate Homocysteine Urine Color Urine Clarity Urine pH Ur Specific [place] Urine Protein Urine Glucose (UA) Urine Ketones Urine Blood Urine Nitrate Urine Bilirubin Urine Urobilinogen Ur Leukocyte Esterase Urine WBC (Auto) Urine RBC (Auto) Ur Squamous Epith Cells Amorphous Sediment Urine Bacteria RPR 11/01/16 11/01/16 11/01/16 06:15 07:07 08:00 WBC RBC Hgb Hct MCV MCH MCHC RDW Plt Count MPV Neut % (Auto) Lymph % (Auto) [place] % (Auto) Eos % (Auto) Baso % (Auto) Neut # Lymph # [place] # Eos # Baso # Neutrophils % (Manual) Band Neutrophils % Lymphocytes % (Manual) Monocytes % (Manual) Platelet Estimate RBC Morphology PT INR APTT Fibrinogen Sodium Potassium Chloride Carbon Dioxide Anion Gap BUN Creatinine Est GFR ( Amer) Est GFR (Non-Af Amer) POC Glucose (mg/dL) Random Glucose Calcium Magnesium Total Bilirubin AST ALT Alkaline Phosphatase Troponin I Total Protein Albumin Globulin Albumin/Globulin Ratio Vitamin B12 473 Folate 13.7 Homocysteine 5.9 Urine Color Yellow Urine Clarity Clear Urine pH 5.0 Ur Specific [place] 1.016 Urine Protein 2+ H Urine Glucose (UA) Normal Urine Ketones Negative Urine Blood Negative Urine Nitrate Negative Urine Bilirubin Negative Urine Urobilinogen Normal Ur Leukocyte Esterase Trace Urine WBC (Auto) 6 H Urine RBC (Auto) 5 H Ur Squamous Epith Cells < 1 Amorphous Sediment Rare H Urine Bacteria Rare RPR Nonreactive 11/01/16 11/01/16 11/01/16 08:00 09:07 11:40 WBC RBC Hgb Hct MCV MCH MCHC RDW Plt Count MPV Neut % (Auto) Lymph % (Auto) [place] % (Auto) Eos % (Auto) Baso % (Auto) Neut # Lymph # [place] # Eos # Baso # Neutrophils % (Manual) Band Neutrophils % Lymphocytes % (Manual) Monocytes % (Manual) Platelet Estimate RBC Morphology PT INR APTT Fibrinogen 320 Sodium Potassium Chloride Carbon Dioxide Anion Gap BUN Creatinine Est GFR ( Amer) Est GFR (Non-Af Amer) POC Glucose (mg/dL) 129 H 135 H Random Glucose Calcium Magnesium Total Bilirubin AST ALT Alkaline Phosphatase Troponin I Total Protein Albumin Globulin Albumin/Globulin Ratio Vitamin B12 Folate Homocysteine Urine Color Urine Clarity Urine pH Ur Specific [place] Urine Protein Urine Glucose (UA) Urine Ketones Urine Blood Urine Nitrate Urine Bilirubin Urine Urobilinogen Ur Leukocyte Esterase Urine WBC (Auto) Urine RBC (Auto) Ur Squamous Epith Cells Amorphous Sediment Urine Bacteria RPR 11/01/16 16:09 WBC RBC Hgb Hct MCV MCH MCHC RDW Plt Count MPV Neut % (Auto) Lymph % (Auto) [place] % (Auto) Eos % (Auto) Baso % (Auto) Neut # Lymph # [place] # Eos # Baso # Neutrophils % (Manual) Band Neutrophils % Lymphocytes % (Manual) Monocytes % (Manual) Platelet Estimate RBC Morphology PT INR APTT Fibrinogen Sodium Potassium Chloride Carbon Dioxide Anion Gap BUN Creatinine Est GFR ( Amer) Est GFR (Non-Af Amer) POC Glucose (mg/dL) 133 H Random Glucose Calcium Magnesium Total Bilirubin AST ALT Alkaline Phosphatase Troponin I Total Protein Albumin Globulin Albumin/Globulin Ratio Vitamin B12 Folate Homocysteine Urine Color Urine Clarity Urine pH Ur Specific [place] Urine Protein Urine Glucose (UA) Urine Ketones Urine Blood Urine Nitrate Urine Bilirubin Urine Urobilinogen Ur Leukocyte Esterase Urine WBC (Auto) Urine RBC (Auto) Ur Squamous Epith Cells Amorphous Sediment Urine Bacteria RPR
[2016-11-02] MEDS: Mannitol 12.5 gm/50 ml Inj IV SCH ×3 (01:35→18:02)
[2016-11-02 06:29] LABS: HEMOGLOBIN 10.8 g/dL (11.0-16.0); LYMPH % 4.9 % (20.0-40.0); NEUT # 17.9 K/uL (1.8-7.0)
[2016-11-02 06:38] LABS: ALBUMIN 3.5 g/dL (3.5-5.0)
[2016-11-02 06:40] LABS: GFR AFRICAN-AMERICAN > 60; GFR NON-AFRICAN AMERICAN > 60
[2016-11-02 06:41] LABS: ALB/GLOB RATIO 1.1 (1.0-2.1); ALT/SGPT 17 U/L (9-52); AST/SGOT 18 U/L (14-36); BLOOD UREA NITROGEN 24 mg/dL (7-17); CALCIUM 8.3 mg/dl (8.6-10.4)
[2016-11-02 06:42] LABS: MAGNESIUM 2.2 mg/dL (1.6-2.3)
--- NOTE | 2016-11-02 07:23 | CP.PCM.PN ---
Subjective - Date & Time of Evaluation Date of Evaluation: 11/02/16 Time of Evaluation: 07:20 - Subjective Subjective: SHE IS IN DARK WITH CURTAINS CLOSED NEW HEADACHE 11/02 WITH NAUSEA PUPIL REACTIVE AND LEFT HEMIPARESIS - UNCHANGED PLAN:: STAT CAT HEAD FOLLOWUP FOR ICH CONTINUE THE REST OF THE RECOMMEDED CASE DISCUSSED WITH MANAGER DISASTER RECOVERY Objective - Vital Signs/Intake and Output Vital Signs (last 24 hours): Temp Pulse Resp BP Pulse Ox 98.2 F 68 11 L 115/55 L 98 11/02/16 04:00 11/02/16 07:00 11/02/16 07:00 11/02/16 06:18 11/02/16 07:00 Intake and Output: 11/02/16 11/02/16 06:59 18:59 Intake Total 690 0 Output Total 425 0 Balance 265 0 - Medications Medications: Current Medications Acetaminophen (Tylenol 325mg Tab) 650 mg PO Q4H PRN PRN Reason: Headache Last Admin: 11/02/16 00:21 Dose: 650 mg Famotidine (Pepcid) 20 mg IVP Q12 PB Last Admin: 11/01/16 21:38 Dose: 20 mg Levetiracetam 500 mg/ Dextrose 105 mls @ 420 mls/hr IVPB Q12H PB Last Admin: 11/01/16 21:40 Dose: 420 mls/hr Mannitol (Mannitol) 12.5 gm IV Q8H PB Stop: 11/03/16 02:31 Last Admin: 11/02/16 01:35 Dose: 12.5 gm - Labs Labs: 11/01/16 06:15 11/02/16 06:18 PT 11.3 SECONDS (9.7-12.2) 11/01/16 06:15 INR 1.0 11/01/16 06:15 APTT 27 SECONDS (21-34) 11/01/16 06:15 Assessment and Plan (1) Intraparenchymal hemorrhage of brain Status: Acute
[2016-11-02 07:41] LABS: MEAN CELL VOLUME 89.9 fL (81.0-99.0); MEAN CORPUSCULAR HEMOGLOBIN 28.8 pg (27.0-31.0); MEAN PLATELET VOLUME 9.5 fL (7.2-11.7); MONO # 0.7 K/uL (0.0-0.8); MONO % 3.7 % (0.0-10.0); NEUT % 91.4 % (50.0-75.0); PLATELET COUNT 247 K/uL (130-400); RBC 3.75 Mil/uL (3.80-5.20); RED CELL DISTRIBUTION WIDTH 12.9 % (11.5-14.5)
[2016-11-02 07:48] LABS: WHITE BLOOD COUNT 19.5 K/uL (4.8-10.8)
[2016-11-02] MEDS ORDERED: Oxycodone/Acetaminophen 5/325 mg Tab PO PRN (08:12)
[2016-11-02] MEDS ORDERED: Oxycodone/Acetaminophen 5/325 mg Tab PO STA (08:13)
--- NOTE | 2016-11-02 08:17 | CP.CCUPN ---
<PabloAdelita RoPaige - Last Filed: 11/02/16 15:02> CCU Subjective - Physician Review Subjective (Free Text): 11/02/16 15:02 Patient seen and examined at bedside in the AM. Patient denied shortness of breath or chest pain. Patient is in the room with the curtains closed and ice packs on her head. Patient stated she had a headache on the right side of her head and pain in her right eye that felt like a stabbing pain. Patient stated she felt numbness on the right side of her arm and legs and tingling in her feet. 11/02/16 15:33 CCU Objective - Vital Signs / Intake & Output Vital Signs (Last 4 hours): Vital Signs Pulse Resp BP Pulse Ox 11/02/16 07:00 68 11 L 98 11/02/16 06:18 69 13 115/55 L 95 11/02/16 06:00 71 12 93 L 11/02/16 05:18 74 13 102/49 L 95 11/02/16 05:00 71 13 96 11/02/16 04:18 71 11 L 91/48 L 96 Intake and Output (Last 8hrs): Intake & Output 11/01/16 11/02/16 11/02/16 22:59 06:59 14:59 Intake Total 400 590 0 Output Total 450 300 0 Balance -50 290 0 Intake: Intake, IV Amount 150 50 0 Right Forearm 150 50 0 Oral 250 540 0 Output: Urine 450 300 0 Urine, Voided 450 300 0 Other: # Voids Urine, Voided 0 # Bowel Movements 0 0 0 - Physical Exam Head: Positive for: Atraumatic, Normocephalic Extroacular Muscles: Positive for: EOMI Mouth: Positive for: Moist Mucous Membranes Respiratory/Chest: Positive for: Clear to Auscultation, Good Air Exchange. Negative for: Wheezes, Rales, Rhonchi Cardiovascular: Positive for: Regular Rate and Rhythm, Normal S1, S2 Abdomen: Positive for: Normal Bowel Sounds Upper Extremity: Negative for: Edema, Normal ROM (decreased range of motion in the patient's right arm; Muscle Strength 3/5 ) Lower Extremity: Negative for: Edema, CALF TENDERNESS, Normal ROM (decreased range of motion right LE; Muscle strength 3/5), Tenderness, Swelling Neurological: Positive for: GCS=15, Speech Normal, Normal Sensory Function Skin: Positive for: Warm, Dry, Normal Color Psychiatric: Positive for: Alert, Oriented x 3, Normal Insight, Normal Concentration - Medications Active Medications: Active Medications Generic Name Dose Route Start Last Admin Trade Name Freq PRN Reason Stop Dose Admin Acetaminophen 650 mg 11/01/16 14:51 11/02/16 00:21 Tylenol 325mg Tab PO 650 mg Q4H PRN Administration Headache Famotidine 20 mg 10/31/16 23:45 11/01/16 21:38 Pepcid IVP 20 mg Q12 PB Administration Levetiracetam 500 mg/ Dextrose 105 mls @ 420 mls/hr 10/31/16 22:15 11/01/16 21:40 IVPB 420 mls/hr Q12H PB Administration Mannitol 12.5 gm 11/01/16 10:30 11/02/16 01:35 Mannitol IV 11/03/16 02:31 12.5 gm Q8H PB Administration Oxycodone/Acetaminophen 1 tab 11/02/16 08:12 Percocet 5/325 Mg Tab PO 11/05/16 08:13 Q8H PRN Headache - Patient Studies Lab Studies: Lab Studies 11/02/16 11/02/16 11/01/16 Range/Units 06:18 06:18 21:37 WBC 19.5 H D (4.8-10.8) K/uL RBC 3.75 L (3.80-5.20) Mil/uL Hgb 10.8 L (11.0-16.0) g/dL Hct 33.7 L (34.0-47.0) % MCV 89.9 (81.0-99.0) fL MCH 28.8 (27.0-31.0) pg MCHC 32.0 L (33.0-37.0) g/dL RDW 12.9 (11.5-14.5) % Plt Count 247 (130-400) K/uL MPV 9.5 (7.2-11.7) fL Neut % (Auto) 91.4 H (50.0-75.0) % Lymph % (Auto) 4.9 L (20.0-40.0) % [place] % (Auto) 3.7 (0.0-10.0) % Eos % (Auto) 0.0 (0.0-4.0) % Baso % (Auto) 0.0 (0.0-2.0) % Neut # 17.9 H (1.8-7.0) K/uL Lymph # 1.0 (1.0-4.3) K/uL [place] # 0.7 (0.0-0.8) K/uL Eos # 0.0 (0.0-0.7) K/uL Baso # 0.0 (0.0-0.2) K/uL Neutrophils % (Manual) (50-75) % Band Neutrophils % (0-2) % Lymphocytes % (Manual) (20-40) % Monocytes % (Manual) (0-10) % Platelet Estimate (NORMAL) RBC Morphology Fibrinogen (200-400) mg/dL Sodium 138 (132-148) mmol/L Potassium 3.7 (3.6-5.2) mmol/L Chloride 103 (98-107) mmol/L Carbon Dioxide 27 (22-30) mmol/L Anion Gap 12 (10-20) BUN 24 H (7-17) mg/dL Creatinine 0.8 (0.7-1.2) MG/DL Est GFR ( Amer) > 60 Est GFR (Non-Af Amer) > 60 POC Glucose (mg/dL) 129 H (65-110) mg/dL Random Glucose 127 H (65-105) mg/dL Calcium 8.3 L (8.6-10.4) mg/dl Phosphorus 4.5 (2.5-4.5) mg/dL Magnesium 2.2 (1.6-2.3) mg/dL Total Bilirubin 1.0 (0.2-1.3) mg/dL AST 18 (14-36) U/L ALT 17 (9-52) U/L Alkaline Phosphatase 109 (38-126) U/L Total Protein 6.6 (6.3-8.3) g/dL Albumin 3.5 (3.5-5.0) g/dL Globulin 3.1 (2.2-3.9) gm/dL Albumin/Globulin Ratio 1.1 (1.0-2.1) Vitamin B12 (239-931) pg/mL Folate ng/mL Homocysteine (4.7-12.6) umol/L RPR (NONREACTIVE) 11/01/16 11/01/16 11/01/16 Range/Units 16:09 11:40 09:07 WBC (4.8-10.8) K/uL RBC (3.80-5.20) Mil/uL Hgb (11.0-16.0) g/dL Hct (34.0-47.0) % MCV (81.0-99.0) fL MCH (27.0-31.0) pg MCHC (33.0-37.0) g/dL RDW (11.5-14.5) % Plt Count (130-400) K/uL MPV (7.2-11.7) fL Neut % (Auto) (50.0-75.0) % Lymph % (Auto) (20.0-40.0) % [place] % (Auto) (0.0-10.0) % Eos % (Auto) (0.0-4.0) % Baso % (Auto) (0.0-2.0) % Neut # (1.8-7.0) K/uL Lymph # (1.0-4.3) K/uL [place] # (0.0-0.8) K/uL Eos # (0.0-0.7) K/uL Baso # (0.0-0.2) K/uL Neutrophils % (Manual) (50-75) % Band Neutrophils % (0-2) % Lymphocytes % (Manual) (20-40) % Monocytes % (Manual) (0-10) % Platelet Estimate (NORMAL) RBC Morphology Fibrinogen (200-400) mg/dL Sodium (132-148) mmol/L Potassium (3.6-5.2) mmol/L Chloride (98-107) mmol/L Carbon Dioxide (22-30) mmol/L Anion Gap (10-20) BUN (7-17) mg/dL Creatinine (0.7-1.2) MG/DL Est GFR ( Amer) Est GFR (Non-Af Amer) POC Glucose (mg/dL) 133 H 135 H 129 H (65-110) mg/dL Random Glucose (65-105) mg/dL Calcium (8.6-10.4) mg/dl Phosphorus (2.5-4.5) mg/dL Magnesium (1.6-2.3) mg/dL Total Bilirubin (0.2-1.3) mg/dL AST (14-36) U/L ALT (9-52) U/L Alkaline Phosphatase (38-126) U/L Total Protein (6.3-8.3) g/dL Albumin (3.5-5.0) g/dL Globulin (2.2-3.9) gm/dL Albumin/Globulin Ratio (1.0-2.1) Vitamin B12 (239-931) pg/mL Folate ng/mL Homocysteine (4.7-12.6) umol/L RPR (NONREACTIVE) 11/01/16 11/01/16 11/01/16 Range/Units 08:00 08:00 07:07 WBC (4.8-10.8) K/uL RBC (3.80-5.20) Mil/uL Hgb (11.0-16.0) g/dL Hct (34.0-47.0) % MCV (81.0-99.0) fL MCH (27.0-31.0) pg MCHC (33.0-37.0) g/dL RDW (11.5-14.5) % Plt Count (130-400) K/uL MPV (7.2-11.7) fL Neut % (Auto) (50.0-75.0) % Lymph % (Auto) (20.0-40.0) % [place] % (Auto) (0.0-10.0) % Eos % (Auto) (0.0-4.0) % Baso % (Auto) (0.0-2.0) % Neut # (1.8-7.0) K/uL Lymph # (1.0-4.3) K/uL [place] # (0.0-0.8) K/uL Eos # (0.0-0.7) K/uL Baso # (0.0-0.2) K/uL Neutrophils % (Manual) (50-75) % Band Neutrophils % (0-2) % Lymphocytes % (Manual) (20-40) % Monocytes % (Manual) (0-10) % Platelet Estimate (NORMAL) RBC Morphology Fibrinogen 320 (200-400) mg/dL Sodium (132-148) mmol/L Potassium (3.6-5.2) mmol/L Chloride (98-107) mmol/L Carbon Dioxide (22-30) mmol/L Anion Gap (10-20) BUN (7-17) mg/dL Creatinine (0.7-1.2) MG/DL Est GFR ( Amer) Est GFR (Non-Af Amer) POC Glucose (mg/dL) (65-110) mg/dL Random Glucose (65-105) mg/dL Calcium (8.6-10.4) mg/dl Phosphorus (2.5-4.5) mg/dL Magnesium (1.6-2.3) mg/dL Total Bilirubin (0.2-1.3) mg/dL AST (14-36) U/L ALT (9-52) U/L Alkaline Phosphatase (38-126) U/L Total Protein (6.3-8.3) g/dL Albumin (3.5-5.0) g/dL Globulin (2.2-3.9) gm/dL Albumin/Globulin Ratio (1.0-2.1) Vitamin B12 473 (239-931) pg/mL Folate 13.7 ng/mL Homocysteine 5.9 (4.7-12.6) umol/L RPR Nonreactive (NONREACTIVE) 11/01/16 Range/Units 06:15 WBC (4.8-10.8) K/uL RBC (3.80-5.20) Mil/uL Hgb (11.0-16.0) g/dL Hct (34.0-47.0) % MCV (81.0-99.0) fL MCH (27.0-31.0) pg MCHC (33.0-37.0) g/dL RDW (11.5-14.5) % Plt Count (130-400) K/uL MPV (7.2-11.7) fL Neut % (Auto) (50.0-75.0) % Lymph % (Auto) (20.0-40.0) % [place] % (Auto) (0.0-10.0) % Eos % (Auto) (0.0-4.0) % Baso % (Auto) (0.0-2.0) % Neut # (1.8-7.0) K/uL Lymph # (1.0-4.3) K/uL [place] # (0.0-0.8) K/uL Eos # (0.0-0.7) K/uL Baso # (0.0-0.2) K/uL Neutrophils % (Manual) 90 H (50-75) % Band Neutrophils % 1 (0-2) % Lymphocytes % (Manual) 7 L (20-40) % Monocytes % (Manual) 2 (0-10) % Platelet Estimate Normal (NORMAL) RBC Morphology Normal Fibrinogen (200-400) mg/dL Sodium (132-148) mmol/L Potassium (3.6-5.2) mmol/L Chloride (98-107) mmol/L Carbon Dioxide (22-30) mmol/L Anion Gap (10-20) BUN (7-17) mg/dL Creatinine (0.7-1.2) MG/DL Est GFR ( Amer) Est GFR (Non-Af Amer) POC Glucose (mg/dL) (65-110) mg/dL Random Glucose (65-105) mg/dL Calcium (8.6-10.4) mg/dl Phosphorus (2.5-4.5) mg/dL Magnesium (1.6-2.3) mg/dL Total Bilirubin (0.2-1.3) mg/dL AST (14-36) U/L ALT (9-52) U/L Alkaline Phosphatase (38-126) U/L Total Protein (6.3-8.3) g/dL Albumin (3.5-5.0) g/dL Globulin (2.2-3.9) gm/dL Albumin/Globulin Ratio (1.0-2.1) Vitamin B12 (239-931) pg/mL Folate ng/mL Homocysteine (4.7-12.6) umol/L RPR (NONREACTIVE) Laboratory Results - last 24 hr 11/01/16 11/01/16 11/01/16 06:15 07:07 08:00 WBC RBC Hgb Hct MCV MCH MCHC RDW Plt Count MPV Neut % (Auto) Lymph % (Auto) [place] % (Auto) Eos % (Auto) Baso % (Auto) Neut # Lymph # [place] # Eos # Baso # Neutrophils % (Manual) 90 H Band Neutrophils % 1 Lymphocytes % (Manual) 7 L Monocytes % (Manual) 2 Platelet Estimate Normal RBC Morphology Normal Fibrinogen Sodium Potassium Chloride Carbon Dioxide Anion Gap BUN Creatinine Est GFR ( Amer) Est GFR (Non-Af Amer) POC Glucose (mg/dL) Random Glucose Calcium Phosphorus Magnesium Total Bilirubin AST ALT Alkaline Phosphatase Total Protein Albumin Globulin Albumin/Globulin Ratio Vitamin B12 473 Folate 13.7 Homocysteine 5.9 RPR Nonreactive 11/01/16 11/01/16 11/01/16 08:00 09:07 11:40 WBC RBC Hgb Hct MCV MCH MCHC RDW Plt Count MPV Neut % (Auto) Lymph % (Auto) [place] % (Auto) Eos % (Auto) Baso % (Auto) Neut # Lymph # [place] # Eos # Baso # Neutrophils % (Manual) Band Neutrophils % Lymphocytes % (Manual) Monocytes % (Manual) Platelet Estimate RBC Morphology Fibrinogen 320 Sodium Potassium Chloride Carbon Dioxide Anion Gap BUN Creatinine Est GFR ( Amer) Est GFR (Non-Af Amer) POC Glucose (mg/dL) 129 H 135 H Random Glucose Calcium Phosphorus Magnesium Total Bilirubin AST ALT Alkaline Phosphatase Total Protein Albumin Globulin Albumin/Globulin Ratio Vitamin B12 Folate Homocysteine RPR 11/01/16 11/01/16 11/02/16 16:09 21:37 06:18 WBC 19.5 H D RBC 3.75 L Hgb 10.8 L Hct 33.7 L MCV 89.9 MCH 28.8 MCHC 32.0 L RDW 12.9 Plt Count 247 MPV 9.5 Neut % (Auto) 91.4 H Lymph % (Auto) 4.9 L [place] % (Auto) 3.7 Eos % (Auto) 0.0 Baso % (Auto) 0.0 Neut # 17.9 H Lymph # 1.0 [place] # 0.7 Eos # 0.0 Baso # 0.0 Neutrophils % (Manual) Band Neutrophils % Lymphocytes % (Manual) Monocytes % (Manual) Platelet Estimate RBC Morphology Fibrinogen Sodium Potassium Chloride Carbon Dioxide Anion Gap BUN Creatinine Est GFR ( Amer) Est GFR (Non-Af Amer) POC Glucose (mg/dL) 133 H 129 H Random Glucose Calcium Phosphorus Magnesium Total Bilirubin AST ALT Alkaline Phosphatase Total Protein Albumin Globulin Albumin/Globulin Ratio Vitamin B12 Folate Homocysteine RPR 11/02/16 06:18 WBC RBC Hgb Hct MCV MCH MCHC RDW Plt Count MPV Neut % (Auto) Lymph % (Auto) [place] % (Auto) Eos % (Auto) Baso % (Auto) Neut # Lymph # [place] # Eos # Baso # Neutrophils % (Manual) Band Neutrophils % Lymphocytes % (Manual) Monocytes % (Manual) Platelet Estimate RBC Morphology Fibrinogen Sodium 138 Potassium 3.7 Chloride 103 Carbon Dioxide 27 Anion Gap 12 BUN 24 H Creatinine 0.8 Est GFR ( Amer) > 60 Est GFR (Non-Af Amer) > 60 POC Glucose (mg/dL) Random Glucose 127 H Calcium 8.3 L Phosphorus 4.5 Magnesium 2.2 Total Bilirubin 1.0 AST 18 ALT 17 Alkaline Phosphatase 109 Total Protein 6.6 Albumin 3.5 Globulin 3.1 Albumin/Globulin Ratio 1.1 Vitamin B12 Folate Homocysteine RPR Fingerstick Blood Sugar Results: 133 Review of Systems - Constitutional Constitutional: absent: Fever - EENT Eyes: Pain (stabbing pain in the right eye). absent: Change in Vision - Cardiovascular Cardiovascular: absent: Chest Pain, Dyspnea, Palpitations - Respiratory Respiratory: absent: Dyspnea - Gastrointestinal Gastrointestinal: Nausea. absent: Constipation, Vomiting - Genitourinary Genitourinary: absent: Dysuria - Musculoskeletal Musculoskeletal: Numbness, Tingling - Neurological Neurological: Numbness (right upper and lower extremitiy ), Headaches (headache on the right side), Tingling (right upper and lower extremitiy ) - Endocrine Endocrine: absent: Palpitations Critical Care Progress Note - Nutrition Nutrition: Nutrition Category Date Time Status Regular Diet [DIET] Diets 11/01/16 Dinner Active Assessment/Plan - Assessment and Plan (Free Text) Assessment: 66 F with history of HTN not on meds, was driving today around 6 pm with sister who noticed patient was disoriented and asked her to pan puller, patient then vomited and became lethargic. Plan: Neuro: - Alert and oriented 3 - Headache on the right side of the head with stabbing pain in the right eye - Neurology Consult: Dr. Medrano --> help appreciated - Head CT (11/02): Stable right intraparenchymal acute hemorrhage involving the frontal parietal and temporal lobes with 5mm midline shift towards the left no downward herniation. No extra-axial hemorrhage. - Brain MRI (11/02): Re-demonstrated is a large elliptical shaped hematoma, the epicenter of which is located in the right temporal lobe extending superiorly into the lateral basal ganglia. There is a wide rim of low-attenuation edema and possibly some immediate adjacent necrotic brain tissue. No obvious enhancement is seen within or about the hemorrhage at this time to suggest underlying tumor. Note however that the possibility of an underlying vascular lesion cannot be completely excluded. The hematoma exerts persistent mass effect with overlying on sulcal effacement as well as compression of the right lateral ventricle, particularly the right temporal horn. there is very sligh right to left midline shift of with septum pellucidum extending across midline estimated at about 6.1mm. - Carotid Doppler (11/01): Right: duplex scan does not suggest hemodynamically significant stenosis of the right extracranial carotid arteries. Left: duplex scan does not suggest hemodynamically significant stenosis of the left extracranial carotid arteries. - Levetiracetam 500mg Pulm: - Chest X-ray (10/31): Biapical pleural thickening with upper lobe granulomatous changes. Mild venous congestion. Right hilar prominence. Heme: - H/H (11/02): 10.8/33.7 Renal: - BUN/Cr: 24/0.8 GI: - Regular Diet ID: - Urine Culture (11/01): No growth - Naris Culture (11/01): No growth DVT proph - SCDs GI proph - Pepcid 20mg Q12 Code status - full code Case discussed with Dr. Jolynn Shah PGY-1 <Janene Neil - Last Filed: 11/02/16 19:20> CCU Objective - Vital Signs / Intake & Output Vital Signs (Last 4 hours): Vital Signs Temp Pulse Resp BP Pulse Ox 11/02/16 18:18 79 9 L 131/67 96 11/02/16 18:00 78 10 L 90 L 11/02/16 17:18 84 13 134/67 94 L 11/02/16 17:00 96 H 17 95 11/02/16 16:18 86 11 L 146/78 98 11/02/16 16:00 99.5 F 85 12 94 L Intake and Output (Last 8hrs): Intake & Output 11/02/16 11/02/16 11/02/16 06:59 14:59 22:59 Intake Total 590 510 110 Output Total 300 350 250 Balance 290 160 -140 Intake: Intake, IV Amount 50 150 50 Right Forearm 50 150 50 Oral 540 360 60 Output: Urine 300 350 250 Urine, Voided 300 350 250 Other: # Bowel Movements 0 0 - Medications Active Medications: Active Medications Generic Name Dose Route Start Last Admin Trade Name Freq PRN Reason Stop Dose Admin Acetaminophen 650 mg 11/01/16 14:51 11/02/16 15:23 Tylenol 325mg Tab PO 650 mg Q4H PRN Administration Headache Famotidine 20 mg 10/31/16 23:45 11/02/16 09:41 Pepcid IVP 20 mg Q12 PB Administration Hydromorphone HCl 1 mg 11/02/16 15:38 11/02/16 17:14 Dilaudid IVP 1 mg Q12 PRN Administration moderate to severe pain Levetiracetam 500 mg/ Dextrose 105 mls @ 420 mls/hr 10/31/16 22:15 11/02/16 10:22 IVPB 420 mls/hr Q12H PB Administration Mannitol 12.5 gm 11/01/16 10:30 11/02/16 18:02 Mannitol IV 11/03/16 02:31 12.5 gm Q8H PB Administration - Patient Studies Lab Studies: Microbiology Studies 11/01/16 Unknown MRSA Culture (Admit) - Final Naris MRSA NOT DETECTED 11/01/16 Unknown Urine Culture - Final Urine,Barton No Growth (<1,000 CFU/ML) Lab Studies 11/02/16 11/02/16 11/02/16 Range/Units 08:59 06:18 06:18 WBC 19.5 H D (4.8-10.8) K/uL RBC 3.75 L (3.80-5.20) Mil/uL Hgb 10.8 L (11.0-16.0) g/dL Hct 33.7 L (34.0-47.0) % MCV 89.9 (81.0-99.0) fL MCH 28.8 (27.0-31.0) pg MCHC 32.0 L (33.0-37.0) g/dL RDW 12.9 (11.5-14.5) % Plt Count 247 (130-400) K/uL MPV 9.5 (7.2-11.7) fL Neut % (Auto) 91.4 H (50.0-75.0) % Lymph % (Auto) 4.9 L (20.0-40.0) % [place] % (Auto) 3.7 (0.0-10.0) % Eos % (Auto) 0.0 (0.0-4.0) % Baso % (Auto) 0.0 (0.0-2.0) % Neut # 17.9 H (1.8-7.0) K/uL Lymph # 1.0 (1.0-4.3) K/uL [place] # 0.7 (0.0-0.8) K/uL Eos # 0.0 (0.0-0.7) K/uL Baso # 0.0 (0.0-0.2) K/uL Neutrophils % (Manual) 92 H (50-75) % Band Neutrophils % 2 (0-2) % Lymphocytes % (Manual) 3 L (20-40) % Monocytes % (Manual) 3 (0-10) % Platelet Estimate Normal (NORMAL) RBC Morphology Normal Sodium 138 (132-148) mmol/L Potassium 3.7 (3.6-5.2) mmol/L Chloride 103 (98-107) mmol/L Carbon Dioxide 27 (22-30) mmol/L Anion Gap 12 (10-20) BUN 24 H (7-17) mg/dL Creatinine 0.8 (0.7-1.2) MG/DL Est GFR ( Amer) > 60 Est GFR (Non-Af Amer) > 60 POC Glucose (mg/dL) 117 H (65-110) mg/dL Random Glucose 127 H (65-105) mg/dL Calcium 8.3 L (8.6-10.4) mg/dl Phosphorus 4.5 (2.5-4.5) mg/dL Magnesium 2.2 (1.6-2.3) mg/dL Total Bilirubin 1.0 (0.2-1.3) mg/dL AST 18 (14-36) U/L ALT 17 (9-52) U/L Alkaline Phosphatase 109 (38-126) U/L Total Protein 6.6 (6.3-8.3) g/dL Albumin 3.5 (3.5-5.0) g/dL Globulin 3.1 (2.2-3.9) gm/dL Albumin/Globulin Ratio 1.1 (1.0-2.1) 11/01/16 Range/Units 21:37 WBC (4.8-10.8) K/uL RBC (3.80-5.20) Mil/uL Hgb (11.0-16.0) g/dL Hct (34.0-47.0) % MCV (81.0-99.0) fL MCH (27.0-31.0) pg MCHC (33.0-37.0) g/dL RDW (11.5-14.5) % Plt Count (130-400) K/uL MPV (7.2-11.7) fL Neut % (Auto) (50.0-75.0) % Lymph % (Auto) (20.0-40.0) % [place] % (Auto) (0.0-10.0) % Eos % (Auto) (0.0-4.0) % Baso % (Auto) (0.0-2.0) % Neut # (1.8-7.0) K/uL Lymph # (1.0-4.3) K/uL [place] # (0.0-0.8) K/uL Eos # (0.0-0.7) K/uL Baso # (0.0-0.2) K/uL Neutrophils % (Manual) (50-75) % Band Neutrophils % (0-2) % Lymphocytes % (Manual) (20-40) % Monocytes % (Manual) (0-10) % Platelet Estimate (NORMAL) RBC Morphology Sodium (132-148) mmol/L Potassium (3.6-5.2) mmol/L Chloride (98-107) mmol/L Carbon Dioxide (22-30) mmol/L Anion Gap (10-20) BUN (7-17) mg/dL Creatinine (0.7-1.2) MG/DL Est GFR ( Amer) Est GFR (Non-Af Amer) POC Glucose (mg/dL) 129 H (65-110) mg/dL Random Glucose (65-105) mg/dL Calcium (8.6-10.4) mg/dl Phosphorus (2.5-4.5) mg/dL Magnesium (1.6-2.3) mg/dL Total Bilirubin (0.2-1.3) mg/dL AST (14-36) U/L ALT (9-52) U/L Alkaline Phosphatase (38-126) U/L Total Protein (6.3-8.3) g/dL Albumin (3.5-5.0) g/dL Globulin (2.2-3.9) gm/dL Albumin/Globulin Ratio (1.0-2.1) Laboratory Results - last 24 hr 11/01/16 11/02/16 11/02/16 21:37 06:18 06:18 WBC 19.5 H D RBC 3.75 L Hgb 10.8 L Hct 33.7 L MCV 89.9 MCH 28.8 MCHC 32.0 L RDW 12.9 Plt Count 247 MPV 9.5 Neut % (Auto) 91.4 H Lymph % (Auto) 4.9 L [place] % (Auto) 3.7 Eos % (Auto) 0.0 Baso % (Auto) 0.0 Neut # 17.9 H Lymph # 1.0 [place] # 0.7 Eos # 0.0 Baso # 0.0 Neutrophils % (Manual) 92 H Band Neutrophils % 2 Lymphocytes % (Manual) 3 L Monocytes % (Manual) 3 Platelet Estimate Normal RBC Morphology Normal Sodium 138 Potassium 3.7 Chloride 103 Carbon Dioxide 27 Anion Gap 12 BUN 24 H Creatinine 0.8 Est GFR ( Amer) > 60 Est GFR (Non-Af Amer) > 60 POC Glucose (mg/dL) 129 H Random Glucose 127 H Calcium 8.3 L Phosphorus 4.5 Magnesium 2.2 Total Bilirubin 1.0 AST 18 ALT 17 Alkaline Phosphatase 109 Total Protein 6.6 Albumin 3.5 Globulin 3.1 Albumin/Globulin Ratio 1.1 11/02/16 08:59 WBC RBC Hgb Hct MCV MCH MCHC RDW Plt Count MPV Neut % (Auto) Lymph % (Auto) [place] % (Auto) Eos % (Auto) Baso % (Auto) Neut # Lymph # [place] # Eos # Baso # Neutrophils % (Manual) Band Neutrophils % Lymphocytes % (Manual) Monocytes % (Manual) Platelet Estimate RBC Morphology Sodium Potassium Chloride Carbon Dioxide Anion Gap BUN Creatinine Est GFR ( Amer) Est GFR (Non-Af Amer) POC Glucose (mg/dL) 117 H Random Glucose Calcium Phosphorus Magnesium Total Bilirubin AST ALT Alkaline Phosphatase Total Protein Albumin Globulin Albumin/Globulin Ratio Critical Care Progress Note - Nutrition Nutrition: Nutrition Category Date Time Status Regular Diet [DIET] Diets 11/01/16 Dinner Active Attending/Attestation - Attestation I have personally seen and examined this patient.: Yes I have fully participated in the care of the patient.: Yes I have reviewed all pertinent clinical information: Yes Notes (Text): 11/02/16 19:20 agree with above note during rounds in the am pt was examined and clinical decision was made and discussed with icu team
--- NOTE | 2016-11-02 08:23 | CT ---
PROCEDURE: CT HEAD WITHOUT CONTRAST. HISTORY: new worsening headache COMPARISON: 11/01/2016 TECHNIQUE: Axial computed tomography images were obtained through the head/brain without intravenous contrast. Radiation dose: Total exam DLP = 981.84 mGy-cm. This CT exam was performed using one or more of the following dose reduction techniques: Automated exposure control, adjustment of the mA and/or kV according to patient size, and/or use of iterative reconstruction technique. FINDINGS: HEMORRHAGE: Note is again made of a large right sided cerebral acute hemorrhage centered in the temporal lobe extending to the frontoparietal white matter with a rim of surrounding edema. This is essentially unchanged in size from the prior examination. It measures approximately 5.1 x 3.2 x 2.9 cm. There is mass effect upon the right lateral ventricle. There is midline shift towards the left by approximately 5 mm, unchanged from prior examination. There is some mass effect upon the temporal horn of right lateral ventricle displacing and medially. There is no evidence of downward herniation. The basilar cisterns are preserved. There is no hydrocephalus. There is no intraventricular or extra-axial hemorrhage identified. . BRAIN: No definite intracranial mass identified. VENTRICLES: As above CALVARIUM: Unremarkable. PARANASAL SINUSES: Unremarkable as visualized. No significant inflammatory changes. MASTOID AIR CELLS: Minimal fluid/soft tissue density in the epitympanum on the left side. Uncertain significance. OTHER FINDINGS: None. IMPRESSION: Stable right intraparenchymal acute hemorrhage involving the frontal parietal and temporal lobes with 5 mm midline shift towards the left but no downward herniation. No extra-axial hemorrhage.
[2016-11-02 09:07] LABS: BANDS 2 % (0-2); LYMPHOCYTE 3 % (20-40); MONOCYTE 3 % (0-10); NEUTROPHIL 92 % (50-75); TOTAL CELLS COUNTED 100
[2016-11-02 09:10] LABS: PLATELET ESTIMATE NORMAL (NORMAL)
[2016-11-02] MEDS ORDERED: Gadodiamide 287 MG/ML VIAL (15ML) IV ONE (12:34)
--- NOTE | 2016-11-02 13:32 | CARD ---
APPROVED REPORT EKG Measurement Heart [id number] <Conclusion> Normal sinus rhythm Normal ECG
--- NOTE | 2016-11-02 14:35 | MRI ---
PROCEDURE: MRI BRAIN WITH AND WITHOUT CONTRAST HISTORY: r/o intracranial mass COMPARISON: None. TECHNIQUE: Multiplanar, multisequence MR images of the brain were obtained with and without intravenous contrast enhancement. FINDINGS: HEMORRHAGE: Re- demonstrated is a large elliptical shaped hematoma, the epicenter of which is located in the right temporal lobe extending superiorly into the lateral basal ganglia. The hemorrhage exhibits varying stages of evolution. There is a wide rim of low-attenuation edema and possibly some immediate adjacent necrotic brain tissue. No obvious enhancement is seen within or about the hemorrhage at this time to suggest underlying tumor. Note however that the possibility of an underlying vascular lesion cannot be completely excluded. The lesion also exhibits a very thin rim of variable restricted diffusion however this is felt represent a interface artifact. The hematoma and its attendant surrounding edema exert mass effect with overlying on sulcal effacement as well as compression of the right lateral ventricle, particularly the right temporal horn . There is very slight [id number] midline shift of with septum pellucidum extending across midline estimated at approximately 6.1 mm. DWI: As above. BRAIN PARENCHYMA: There are several small focal areas of increased T2 signal scattered about the deep and subcortical white matter both cerebral hemispheres. Changes likely represent chronic sequela of small vessel disease. ENHANCEMENT: As mentioned above, no definitive enhancement seen within or about this lesion. There is subtle enhancement along the medial superior margin of the right and to a lesser degree left tentorium that probably represents prominent in venous enhancement due to mass effect and slow flow. . . VENTRICLES: No obstructive hydrocephalus not withstanding compressive effects right lateral ventricle which have been detailed above. . No hydrocephalus. CRANIUM: Unremarkable. ORBITS: Grossly unremarkable. PARANASAL SINUSES/MASTOIDS: Clear VASCULAR SYSTEM: Visualized major vascular flow voids at skull base are patent. OTHER FINDINGS: None . IMPRESSION: Re- demonstrated is a large elliptical shaped hematoma (in various stages of breakdown -evolution), the epicenter of which is located in the right temporal lobe extending superiorly into the lateral basal ganglia. There is a wide rim of low-attenuation edema and possibly some immediate adjacent necrotic brain tissue. No obvious enhancement is seen within or about the hemorrhage at this time to suggest underlying tumor. Note however that the possibility of an underlying vascular lesion cannot be completely excluded. . The hematoma exerts persistent mass effect with overlying on sulcal effacement as well as compression of the right lateral ventricle, particularly the right temporal horn. . There is very slight vfhka-[id number]-ryko midline shift of with septum pellucidum extending across midline estimated at approximately 6.1 mm.
--- NOTE | 2016-11-02 14:46 | VASCLAB ---
PROCEDURE: HISTORY: Stroke COMPARISON: None available. TECHNIQUE: Grayscale and duplex Doppler evaluation of the cervical carotid and vertebral arteries were performed. The common carotid, carotid bifurcations and cervical Internal Carotid Artery (ICA) and proximal External Carotid Artery (ECA) were evaluated. The vertebral arteries were evaluated for gross patency and flow direction. Report prepared by MITZI Tam FINDINGS: RIGHT CAROTID ARTERIES: 1. Common Carotid Artery: Minimal heterogenous plaque formation of the right common carotid artery. Maximum Peak Systolic velocity: 102 cm/sec: End-diastolic velocity 15 cm/sec. 2. Carotid Bifurcation: Heterogeneous plaque formation. Maximum Peak Systolic velocity: 85 cm/sec: End-diastolic velocity 14 cm/sec. 3. Internal Carotid Artery: Plaque description: Heterogeneous 3.1. Proximal Segment: Peak systolic velocity 60 cm/sec: End-diastolic velocity 20 cm/sec - % stenosis 0-15% 3.2. Middle Segment: Peak systolic velocity 107 cm/sec: End-diastolic velocity 31 cm/sec - % stenosis 0-15% 3.3. Distal Segment: n/a 4. External Carotid Artery: No significant focal plaque formation. Peak systolic velocity 89 cm/sec 5. ICA/CCA Ratio: 1.3 LEFT CAROTID ARTERIES: 1. Common Carotid Artery: Minimal heterogeneous plaque formation of the left common carotid artery. Maximum Peak Systolic velocity: 111 cm/sec: End-diastolic velocity 23 cm/sec. 2. Carotid Bifurcation: Heterogeneous plaque formation. Maximum Peak Systolic velocity: 59 cm/sec: End-diastolic velocity 15 cm/sec. 3. Internal Carotid Artery: Plaque description: Heterogeneous 3.1. Proximal Segment: Peak systolic velocity 67 cm/sec: End-diastolic velocity 14 cm/sec - % stenosis 0-15% 3.2. Middle Segment: Peak systolic velocity 111 cm/sec: End-diastolic velocity 32 cm/sec - % stenosis 0-15% 3.3. Distal Segment: n/a 4. External Carotid Artery: No significant focal plaque formation. Peak systolic velocity 100 cm/sec 5. ICA/CCA Ratio: 1.3 VERTEBRAL ARTERIES: 1. Right Vertebral Artery: The right vertebral artery flow direction is antegrade. 2. Left Vertebral Artery: The left vertebral artery flow direction is antegrade. OTHER FINDINGS: 1. Right Brachial Blood pressure: 111 mmHg. 2. Left Brachial Blood pressure: 110 mmHg. 3. Due to equipment interference in the ICU department, bilateral DISTAL ICA, could not be imaged. IMPRESSION: RIGHT: Duplex scan does not suggest hemodynamically significant stenosis of the right extracranial carotid arteries. LEFT: Duplex scan does not suggest hemodynamically significant stenosis of the left extracranial carotid arteries.
[2016-11-02] MEDS ORDERED: HYDROmorphone 1 mg/ml ISec IVP PRN (15:38)
--- NOTE | 2016-11-02 17:13 | CP.PCM.PN ---
Subjective - Date & Time of Evaluation Date of Evaluation: 11/02/16 Time of Evaluation: 15:00 - Subjective Subjective: clinically same Objective - Vital Signs/Intake and Output Vital Signs (last 24 hours): Temp Pulse Resp BP Pulse Ox 98.1 F 86 11 L 146/78 98 11/02/16 12:00 11/02/16 16:18 11/02/16 16:18 11/02/16 16:18 11/02/16 16:18 Intake and Output: 11/02/16 11/02/16 06:59 18:59 Intake Total 690 570 Output Total 425 350 Balance 265 220 - Medications Medications: Current Medications Acetaminophen (Tylenol 325mg Tab) 650 mg PO Q4H PRN PRN Reason: Headache Last Admin: 11/02/16 15:23 Dose: 650 mg Famotidine (Pepcid) 20 mg IVP Q12 PB Last Admin: 11/02/16 09:41 Dose: 20 mg Hydromorphone HCl (Dilaudid) 1 mg IVP Q12 PRN PRN Reason: moderate to severe pain Levetiracetam 500 mg/ Dextrose 105 mls @ 420 mls/hr IVPB Q12H [facility] Last Admin: 11/02/16 10:22 Dose: 420 mls/hr Mannitol (Mannitol) 12.5 gm IV Q8H PB Stop: 11/03/16 02:31 Last Admin: 11/02/16 09:40 Dose: 12.5 gm - Labs Labs: 11/02/16 06:18 11/02/16 06:18 PT 11.3 SECONDS (9.7-12.2) 11/01/16 06:15 INR 1.0 11/01/16 06:15 APTT 27 SECONDS (21-34) 11/01/16 06:15 - Constitutional Appears: Well - Head Exam Head Exam: ATRAUMATIC, NORMAL INSPECTION, NORMOCEPHALIC - Eye Exam Eye Exam: EOMI, Normal appearance, PERRL Pupil Exam: NORMAL ACCOMODATION, PERRL - ENT Exam ENT Exam: Mucous Membranes Moist, Normal Exam - Neck Exam Neck Exam: Full ROM, Normal Inspection. absent: Lymphadenopathy - Respiratory Exam Respiratory Exam: Decreased Breath Sounds - Cardiovascular Exam Cardiovascular Exam: REGULAR RHYTHM, +S1, +S2 - GI/Abdominal Exam GI & Abdominal Exam: Soft, Diminished Bowel Sounds - Rectal Exam Rectal Exam: Deferred
[2016-11-02 17:37] VITALS: TEMP 99.5
[2016-11-02] MEDS ORDERED: Iodixanol 320 MG/ML 100 ML BOTTLE IV ONE (18:39)
[2016-11-02 20:01] VITALS: BP 137/67; O2SAT 98
[2016-11-02 20:05] VITALS: PULSE 78; RESP 13
--- NOTE | 2016-11-02 20:50 | CP.CCUPN ---
CCU Subjective - Physician Review Events Since Last Encounter (Free Text): 11/02/16 20:50 Wants to sign out AMA and go to hospital [place] close to [place] CCU Objective - Vital Signs / Intake & Output Vital Signs (Last 4 hours): Vital Signs Pulse Resp BP Pulse Ox 11/02/16 20:00 78 13 98 11/02/16 19:18 81 14 137/67 98 11/02/16 19:00 75 13 98 11/02/16 18:18 79 9 L 131/67 96 11/02/16 18:00 78 10 L 90 L 11/02/16 17:18 84 13 134/67 94 L 11/02/16 17:00 96 H 17 95 Intake and Output (Last 8hrs): Intake & Output 11/02/16 11/02/16 11/02/16 06:59 14:59 22:59 Intake Total 590 510 350 Output Total 300 350 250 Balance 290 160 100 Intake: Intake, IV Amount 50 150 50 Right Forearm 50 150 50 Oral 540 360 300 Output: Urine 300 350 250 Urine, Voided 300 350 250 Other: # Bowel Movements 0 0 - Physical Exam Head: Positive for: Atraumatic, Normocephalic Extroacular Muscles: Positive for: EOMI Mouth: Positive for: Moist Mucous Membranes Neck: Positive for: Normal Range of Motion Respiratory/Chest: Positive for: Clear to Auscultation, Good Air Exchange. Negative for: Wheezes, Rales, Rhonchi Cardiovascular: Positive for: Regular Rate and Rhythm, Normal S1, S2 Abdomen: Positive for: Normal Bowel Sounds Upper Extremity: Negative for: Edema, Normal ROM (decreased range of motion in the patient's right arm; Muscle Strength 3/5 ) Lower Extremity: Negative for: Edema, CALF TENDERNESS, Normal ROM (decreased range of motion right LE; Muscle strength 3/5), Tenderness, Swelling Neurological: Positive for: GCS=15, Speech Normal, Normal Sensory Function Skin: Positive for: Warm, Dry, Normal Color Psychiatric: Positive for: Alert, Oriented x 3, Normal Insight, Normal Concentration - Medications Active Medications: Active Medications Generic Name Dose Route Start Last Admin Trade Name Freq PRN Reason Stop Dose Admin Acetaminophen 650 mg 11/01/16 14:51 11/02/16 15:23 Tylenol 325mg Tab PO 650 mg Q4H PRN Administration Headache Famotidine 20 mg 10/31/16 23:45 11/02/16 09:41 Pepcid IVP 20 mg Q12 PB Administration Hydromorphone HCl 1 mg 11/02/16 15:38 11/02/16 17:14 Dilaudid IVP 1 mg Q12 PRN Administration moderate to severe pain Levetiracetam 500 mg/ Dextrose 105 mls @ 420 mls/hr 10/31/16 22:15 11/02/16 10:22 IVPB 420 mls/hr Q12H PB Administration Mannitol 12.5 gm 11/01/16 10:30 11/02/16 18:02 Mannitol IV 11/03/16 02:31 12.5 gm Q8H BP Administration - Patient Studies Lab Studies: Microbiology Studies 11/01/16 Unknown MRSA Culture (Admit) - Final Naris MRSA NOT DETECTED 11/01/16 Unknown Urine Culture - Final Urine,Barton No Growth (<1,000 CFU/ML) Lab Studies 11/02/16 11/02/16 11/02/16 Range/Units 08:59 06:18 06:18 WBC 19.5 H D (4.8-10.8) K/uL RBC 3.75 L (3.80-5.20) Mil/uL Hgb 10.8 L (11.0-16.0) g/dL Hct 33.7 L (34.0-47.0) % MCV 89.9 (81.0-99.0) fL MCH 28.8 (27.0-31.0) pg MCHC 32.0 L (33.0-37.0) g/dL RDW 12.9 (11.5-14.5) % Plt Count 247 (130-400) K/uL MPV 9.5 (7.2-11.7) fL Neut % (Auto) 91.4 H (50.0-75.0) % Lymph % (Auto) 4.9 L (20.0-40.0) % [place] % (Auto) 3.7 (0.0-10.0) % Eos % (Auto) 0.0 (0.0-4.0) % Baso % (Auto) 0.0 (0.0-2.0) % Neut # 17.9 H (1.8-7.0) K/uL Lymph # 1.0 (1.0-4.3) K/uL Vermilion # 0.7 (0.0-0.8) K/uL Eos # 0.0 (0.0-0.7) K/uL Baso # 0.0 (0.0-0.2) K/uL Neutrophils % (Manual) 92 H (50-75) % Band Neutrophils % 2 (0-2) % Lymphocytes % (Manual) 3 L (20-40) % Monocytes % (Manual) 3 (0-10) % Platelet Estimate Normal (NORMAL) RBC Morphology Normal Sodium 138 (132-148) mmol/L Potassium 3.7 (3.6-5.2) mmol/L Chloride 103 (98-107) mmol/L Carbon Dioxide 27 (22-30) mmol/L Anion Gap 12 (10-20) BUN 24 H (7-17) mg/dL Creatinine 0.8 (0.7-1.2) MG/DL Est GFR ( Amer) > 60 Est GFR (Non-Af Amer) > 60 POC Glucose (mg/dL) 117 H (65-110) mg/dL Random Glucose 127 H (65-105) mg/dL Calcium 8.3 L (8.6-10.4) mg/dl Phosphorus 4.5 (2.5-4.5) mg/dL Magnesium 2.2 (1.6-2.3) mg/dL Total Bilirubin 1.0 (0.2-1.3) mg/dL AST 18 (14-36) U/L ALT 17 (9-52) U/L Alkaline Phosphatase 109 (38-126) U/L Total Protein 6.6 (6.3-8.3) g/dL Albumin 3.5 (3.5-5.0) g/dL Globulin 3.1 (2.2-3.9) gm/dL Albumin/Globulin Ratio 1.1 (1.0-2.1) 11/01/16 Range/Units 21:37 WBC (4.8-10.8) K/uL RBC (3.80-5.20) Mil/uL Hgb (11.0-16.0) g/dL Hct (34.0-47.0) % MCV (81.0-99.0) fL MCH (27.0-31.0) pg MCHC (33.0-37.0) g/dL RDW (11.5-14.5) % Plt Count (130-400) K/uL MPV (7.2-11.7) fL Neut % (Auto) (50.0-75.0) % Lymph % (Auto) (20.0-40.0) % Verm[place] % (Auto) (0.0-10.0) % Eos % (Auto) (0.0-4.0) % Baso % (Auto) (0.0-2.0) % Neut # (1.8-7.0) K/uL Lymph # (1.0-4.3) K/uL Vermilion # (0.0-0.8) K/uL Eos # (0.0-0.7) K/uL Baso # (0.0-0.2) K/uL Neutrophils % (Manual) (50-75) % Band Neutrophils % (0-2) % Lymphocytes % (Manual) (20-40) % Monocytes % (Manual) (0-10) % Platelet Estimate (NORMAL) RBC Morphology Sodium (132-148) mmol/L Potassium (3.6-5.2) mmol/L Chloride (98-107) mmol/L Carbon Dioxide (22-30) mmol/L Anion Gap (10-20) BUN (7-17) mg/dL Creatinine (0.7-1.2) MG/DL Est GFR ( Amer) Est GFR (Non-Af Amer) POC Glucose (mg/dL) 129 H (65-110) mg/dL Random Glucose (65-105) mg/dL Calcium (8.6-10.4) mg/dl Phosphorus (2.5-4.5) mg/dL Magnesium (1.6-2.3) mg/dL Total Bilirubin (0.2-1.3) mg/dL AST (14-36) U/L ALT (9-52) U/L Alkaline Phosphatase (38-126) U/L Total Protein (6.3-8.3) g/dL Albumin (3.5-5.0) g/dL Globulin (2.2-3.9) gm/dL Albumin/Globulin Ratio (1.0-2.1) Laboratory Results - last 24 hr 11/01/16 11/02/16 11/02/16 21:37 06:18 06:18 WBC 19.5 H D RBC 3.75 L Hgb 10.8 L Hct 33.7 L MCV 89.9 MCH 28.8 MCHC 32.0 L RDW 12.9 Plt Count 247 MPV 9.5 Neut % (Auto) 91.4 H Lymph % (Auto) 4.9 L Vermilion % (Auto) 3.7 Eos % (Auto) 0.0 Baso % (Auto) 0.0 Neut # 17.9 H Lymph # 1.0 Vermilion # 0.7 Eos # 0.0 Baso # 0.0 Neutrophils % (Manual) 92 H Band Neutrophils % 2 Lymphocytes % (Manual) 3 L Monocytes % (Manual) 3 Platelet Estimate Normal RBC Morphology Normal Sodium 138 Potassium 3.7 Chloride 103 Carbon Dioxide 27 Anion Gap 12 BUN 24 H Creatinine 0.8 Est GFR ( Amer) > 60 Est GFR (Non-Af Amer) > 60 POC Glucose (mg/dL) 129 H Random Glucose 127 H Calcium 8.3 L Phosphorus 4.5 Magnesium 2.2 Total Bilirubin 1.0 AST 18 ALT 17 Alkaline Phosphatase 109 Total Protein 6.6 Albumin 3.5 Globulin 3.1 Albumin/Globulin Ratio 1.1 11/02/16 08:59 WBC RBC Hgb Hct MCV MCH MCHC RDW Plt Count MPV Neut % (Auto) Lymph % (Auto) Vermilion % (Auto) Eos % (Auto) Baso % (Auto) Neut # Lymph # Verm[place] # Eos # Baso # Neutrophils % (Manual) Band Neutrophils % Lymphocytes % (Manual) Monocytes % (Manual) Platelet Estimate RBC Morphology Sodium Potassium Chloride Carbon Dioxide Anion Gap BUN Creatinine Est GFR ( Amer) Est GFR (Non-Af Amer) POC Glucose (mg/dL) 117 H Random Glucose Calcium Phosphorus Magnesium Total Bilirubin AST ALT Alkaline Phosphatase Total Protein Albumin Globulin Albumin/Globulin Ratio Fingerstick Blood Sugar Results: 133 Critical Care Progress Note - Nutrition Nutrition: Nutrition Category Date Time Status Regular Diet [DIET] Diets 11/01/16 Dinner Active Assessment/Plan - Assessment and Plan (Free Text) Assessment: Patient with Right Intraparanchymal hemorrhage AAOx 3 Wants to sign out AMA and go to hospital in [place] close to [place] Sister of patient is with her. The risks of signing out AMA including worsening of bleed,coma and explained patient and her sister signed patient out AMA.
--- NOTE | 2016-11-10 14:24 | CP.PCM.CON ---
History of Present Illness - History of Present Illness History of Present Illness: Patient is a 66 y/o female who presented to the ER C/O multiple episodes of headache and vomiting with AMS this morning. She initially had weakness of the left arm and left leg, which apparently had resolved. Because of the vomiting and the mental status changes, she was brought to the ER Past Patient History - Past Medical History & Family History Past Medical History?: Yes Past Family History: Reviewed and not pertinent Pertinent Family History: According to the chart, as well as speaking with her for PMHx, SHx, and FHx, there is nothing of significance. This was all documented on the medical record , which I reviewed. - Past Social History Smoking Status: Unknown If Ever Smoked Alcohol: None Drugs: Denies Home Situation {Lives}: With Family Domestic Violence: Negative - CARDIAC Hx Hypercholesterolemia: Yes Hx Hypertension: Yes - PULMONARY Hx Respiratory Disorders: No - NEUROLOGICAL Hx Migraine: Yes (TAKES EXTRA STRENGTH EXEDRINE) - MUSCULOSKELETAL/RHEUMATOLOGICAL Hx Back Pain: Yes Hx Falls: No - PSYCHIATRIC Hx Substance Use: No - ANESTHESIA Hx Anesthesia: No Hx Anesthesia Reactions: No Hx Malignant Hyperthermia: No Has any member of the family had a problem w/ anesthesia?: No Meds Allergies/Adverse Reactions: Allergies Allergy/AdvReac Type Severity Reaction Status Date / Time No Known Allergies Allergy Verified 10/31/16 21:33 Physical Exam - Constitutional Additional comments: In the ER, as well as now, she was fully awake, alert, cooperative, oriented, and following commands. Currently, she has good strength in all limbs. She has no sensory deficits to pain. Reflexes all 12/4, PERRL, EOM appear full. Face is symmetric. Motor exam is 5/5 bilaterally and there are no sensory deficits. Results - Vital Signs Recent Vital Signs: Last Vital Signs Temp 99.5 F 11/02/16 16:00 Pulse 78 11/02/16 20:00 Resp 13 11/02/16 20:00 BP 137/67 11/02/16 19:18 Pulse Ox 98 11/02/16 20:00 - Labs Result Diagrams: 11/02/16 06:18 11/02/16 06:18 - Imaging and Cardiology CT scan - head Additional comment: In the ER, a CT scan was done and noted a large right intracerebral hemorrhage in the right temporal lobe extending to the basal ganglia, fairly deep. There was some mass effect. A repeat CT this morning shows no change. Assessment & Plan - Assessment and Plan (Free Text) Plan: At this point, I started low dose Mannitol, 12.5 g every 8 hours for 48 hours. I inserted a Barton catheter, because I do not believe she will be a surgical candidate, and further treatment can be rendered as per neurology. She is scheduled by the neurologist to have an MRI tomorrow. It is unlikely that she will need surgery, but we will follow as needed. If there are any changes in her mental status we are to be called emergently.
== END 2016-11-02 20:57 | disposition left against medical advice (07) | DRG 65 ==
LOC: C.ER 21:25 → C.9E 22:37 → C.9I 22:57
PROVIDERS: ADMIT Internal Medicine Nephrology; ATTEND Internal Medicine Nephrology
DX: I61.1 Nontraumatic intracerebral hemorrhage in hemisphere, cortical (principal); G81.94 Hemiplegia, unspecified affecting left nondominant side; I10 Essential (primary) hypertension; E78.00 Pure hypercholesterolemia, unspecified; H53.462 Homonymous bilateral field defects, left side